=== PATIENT | female | born 1995 | race Caucasian/White ===

== ENCOUNTER 2016-09-02 23:25 | Inpatient (IN) ==
[2016-09-03 00:05] LABS: URINE SOURCE VOIDED
[2016-09-03 00:07] LABS: BILIRUBIN URINE NEGATIVE (NEGATIVE); BLOOD URINE 4+ (NEGATIVE); CLARITY SL. CLOUDY (CLEAR); COLOR YELLOW; GLUCOSE URINE NEGATIVE (NEGATIVE); LEUKOCYTES URINE 1+ (NEGATIVE); NITRITE URINE NEGATIVE (NEGATIVE); PROTEIN URINE NEGATIVE (NEGATIVE); UROBILINOGEN URINE NORMAL
[2016-09-03] MEDS ORDERED: ZOFRAN IV PRN (01:06)
[2016-09-03] MEDS ORDERED: STADOL IV PRN ×2 (01:06→04:22)
[2016-09-03] MEDS ORDERED: PEPCID PO PRN (01:06)
[2016-09-03] MEDS ORDERED: TYLENOL PO PRN (01:06)
[2016-09-03] MEDS ORDERED: PEPCID IV PRN (01:06)
[2016-09-03] MEDS ORDERED: KEFZOL 1 GM/D5W 1 GM/50 ML IVPB IV PRN (01:06)
[2016-09-03] MEDS ORDERED: SODIUM CHLORIDE 0.9% INJ SCH (01:15)
[2016-09-03 01:34] LABS: UR AMPHETAMINES QUAL NONE DETECTED (NONE DETECT); UR BARBITUATES QUAL NONE DETECTED (NONE DETECT); UR BENZODIAZEPIN QUAL NONE DETECTED (NONE DETECT); UR CANNABINOIDS QUAL NONE DETECTED (NONE DETECT); UR COCAINE QUAL NONE DETECTED (NONE DETECT); UR MDMA QUAL NONE DETECTED (NONE DETECT); UR METHADONE QUAL NONE DETECTED (NONE DETECT); UR METHAMPHETAMINE QUAL NONE DETECTED (NONE DETECT); UR OPIATES QUAL NONE DETECTED (NONE DETECT); UR OXYCODONE QUAL NONE DETECTED (NONE DETECT); UR PCP QUAL NONE DETECTED (NONE DETECT); UR TCA QUAL NONE DETECTED (NONE DETECT)
[2016-09-03] MEDS: LR 1,000 ML IV SCH ×2 (01:40→07:38)
[2016-09-03] MEDS ORDERED: AMPICILLIN 2 GM/NS 2 GM/100 ML IVPB IV ONE (02:00)
[2016-09-03 02:53] LABS: MANUAL DIFF NEEDED? NO
[2016-09-03 02:56] LABS: BASO% 0.3 % (0.0-0.8); EOS# 0.07 X1000 (0.0-0.7); EOS% 0.6 % (0.0-10.0); HEMATOCRIT 33.5 % (37.0-47.0); IMM GRAN# 0.13 X1000 (0.0-0.04); IMM GRAN% 1.2 % (0.0-0.5); LYMPH# 1.93 X1000 (1.2-3.4); LYMPH% 17.6 % (20.5-51.1); MCH 28.2 PG (27-31); MCHC 32.8 g/dL (33-37); MCV 85.9 FL (81-99); MONO# 0.93 X1000 (0.11-0.59); MONO% 8.5 % (1.7-9.3); MPV 11.9 FL (7.4-10.4); NEUT% 71.8 % (42.2-75.2); PLT 159 X1000 (130-400)
[2016-09-03] MEDS: AMPICILLIN 1 GM/NS 1 GM/50 ML IVPB IV SCH ×2 (05:45→09:16)
[2016-09-03] MEDS ORDERED: PITOCIN 30 UNITS/LR 30 UNITS/500 ML IV.SOLN IV SCH (07:00)
[2016-09-03] MEDS ORDERED: FENTANYL-BUPIV-NS 2 MCG-0.1% 200 ML EPIDURAL SCH (08:00)
[2016-09-03] MEDS ORDERED: XYLOCAINE-MPF 1% INJ ONE (09:09)
[2016-09-03] MEDS ORDERED: MINERAL OIL TOP ONE (09:54)
[2016-09-03] MEDS ORDERED: HYDROXYZINE PO PRN (11:34)
[2016-09-03] MEDS ORDERED: PERI MEDS (DERMOPLAST/NUPERCAINAL/TUCKS) MISC PRN (11:34)
[2016-09-03] MEDS ORDERED: PITOCIN 30 UNITS/LR 30 UNITS/500 ML IV.SOLN IV ONE (11:34)
[2016-09-03] MEDS ORDERED: HYDROXYZINE IM PRN (11:34)
[2016-09-03] MEDS ORDERED: BOOSTRIX VACCINE IM ONE (11:34)
[2016-09-03] MEDS ORDERED: XYLOCAINE-MPF 1% INJ PRN (11:34)
[2016-09-03] MEDS ORDERED: PITOCIN IM PRN (11:34)
[2016-09-03] MEDS ORDERED: AMBIEN PO PRN (11:34)
[2016-09-03] MEDS ORDERED: PITOCIN 20 UNITS/LR 20 UNITS/1,000 ML IV.SOLN IV SCH (11:34)
[2016-09-03] MEDS ORDERED: MINERAL OIL PO PRN (11:34)
[2016-09-03] MEDS ORDERED: M-M-R II VACCINE SUBQ ONE (11:34)
[2016-09-03] MEDS ORDERED: BENADRYL IV PRN (11:34)
[2016-09-03] MEDS ORDERED: BENADRYL PO PRN (11:34)
[2016-09-03] MEDS ORDERED: CYTOTEC PO PRN (11:34)
--- NOTE | 2016-09-03 11:53 | OPERATIVE NOTE ---
PROCEDURE DATE: 09/03/2016 PREDELIVERY DIAGNOSES: 1. Intrauterine at 39 and 3. 2. Rh-negative blood type. 3. Group B streptococcus carrier positive. 4. Spontaneous labor. POST-DELIVERY DIAGNOSES: 1. Intrauterine at 39 and 3. 2. Rh-negative blood type. 3. Group B streptococcus carrier positive. 4. Spontaneous labor. 5. Meconium-stained amniotic fluid. PROCEDURE: Vaginal delivery. PHYSICIAN: Jabari Clark MD. ANESTHESIA: Epidural with Dr. Lynne. FINDINGS: Viable female , 7 pounds 2 ounces. Do not have Apgars. There were no lacerations or tears. The cord did break from the placenta. Took approximately 5-7 minutes to deliver an intact placenta. It was inspected. No issues. Three-vessel cord. ESTIMATED BLOOD LOSS: 100 mL. COUNTS: Correct. INDICATIONS: Ms. Adams is a 20-year-old, 2 para 1, at 39 and 3, who presented last night in active labor. DESCRIPTION OF PROCEDURE: Was started on antibiotics for GBS prophylaxis. Was begun on Pitocin this morning. Was artificially ruptured. Had thin meconium. Progress complete cervical dilatation. Began pushing. Approximately 1 hour later crowned, at which point, the bed was broken down. She was prepped and draped. With continued pushing, she delivered a viable female , occiput anterior, over an intact perineum. Once head delivered, shoulders and rest of the body delivered without difficulty. The infant was placed on mother's abdomen. Cord doubly clamped and cut and care of taken over by nursery personnel. Cord blood was obtained and a 3-vessel cord was noted. Gentle traction on the cord resulted in an avulsion of the cord from the placenta, so patient was allowed to continue to contract and she was given a fundal massage. After approximately 5 minutes, the placenta delivered spontaneously. It was inspected found to be intact. Inspection of the perineum and vagina did not reveal any lacerations, tears or material blood clots, so estimated blood loss 100 mL. All counts correct. Expect routine . cc: MD Jabari Blanco MD
[2016-09-03] MEDS: MOTRIN PO PRN ×2 (15:41→23:58)
[2016-09-03] MEDS: NORCO-5 PO PRN ×2 (15:41→23:58)
[2016-09-03] MEDS: PERICOLACE PO SCH (20:56)
[2016-09-03] MEDS: NORCO-10 PO PRN (20:56)
[2016-09-04 05:51] LABS: MANUAL DIFF NEEDED? NO
[2016-09-04 06:00] LABS: BASO% 0.2 % (0.0-0.8); EOS# 0.08 X1000 (0.0-0.7); EOS% 0.8 % (0.0-10.0); HEMATOCRIT 31.2 % (37.0-47.0); HEMOGLOBIN 9.9 g/dL (12.0-16.0); IMM GRAN# 0.13 X1000 (0.0-0.04); IMM GRAN% 1.3 % (0.0-0.5); LYMPH# 2.41 X1000 (1.2-3.4); LYMPH% 24.1 % (20.5-51.1); MCHC 31.7 g/dL (33-37); MCV 88.1 FL (81-99); MONO# 0.73 X1000 (0.11-0.59); MONO% 7.3 % (1.7-9.3); NEUT% 66.3 % (42.2-75.2); PLT 144 X1000 (130-400); RBC 3.54 XMIL (4.2-5.4)
[2016-09-04] MEDS: PRECARE PO SCH (08:51)
[2016-09-04] MEDS: NORCO-5 PO PRN ×3 (09:02→21:31)
[2016-09-04] MEDS: MOTRIN PO PRN ×2 (09:03→16:25)
[2016-09-04] MEDS: PERICOLACE PO SCH (21:28)
[2016-09-05] MEDS: NORCO-5 PO PRN ×2 (00:52→09:17)
[2016-09-05] MEDS: MOTRIN PO PRN ×2 (00:52→09:17)
[2016-09-05] MEDS: NORCO-10 PO PRN (04:52)
[2016-09-05 07:21] VITALS: BP 145/94
[2016-09-05] MEDS: PRECARE PO SCH (09:15)
== END 2016-09-05 10:25 | disposition home or self-care (01) ==
LOC: P.OPLD 23:25 → P.LD 23:28 → P.WC 09-03 15:04
PROVIDERS: ADMIT Obstetrics & Gynecology; ATTEND Obstetrics & Gynecology

== ENCOUNTER 2018-06-09 08:04 | Inpatient (IN) ==
[2018-06-09] MEDS ORDERED: NS 1,000 ML IV ONE ×2 (08:46→11:36)
[2018-06-09 09:22] LABS: BASO# 0.01 X1000 (0.0-0.2); BASO% 0.1 % (0.0-0.8); EOS# 0.01 X1000 (0.0-0.7); EOS% 0.1 % (0.0-10.0); HEMATOCRIT 34.9 % (37.0-47.0); HEMOGLOBIN 11.7 g/dL (12.0-16.0); IMM GRAN# 0.07 X1000 (0.0-0.04); IMM GRAN% 0.4 % (0.0-0.5); LYMPH# 0.93 X1000 (1.2-3.4); LYMPH% 5.8 % (20.5-51.1); MCH 29.3 PG (27-31); MCHC 33.5 g/dL (33-37); MCV 87.3 FL (81-99); MONO# 1.13 X1000 (0.11-0.59); MPV 9.6 FL (7.4-10.4); NEUT# 14.02 X1000 (1.4-6.5); NEUT% 86.6 % (42.2-75.2); PLT 191 X1000 (130-400); RDW 12.9 % (11.5-14.5); WBC 16.17 X1000 (4.8-10.8)
[2018-06-09 09:25] LABS: BILIRUBIN URINE NEGATIVE (NEGATIVE); BLOOD URINE 4+ (NEGATIVE); CLARITY VERY CLOUDY (CLEAR); COLOR YELLOW; GLUCOSE URINE NEGATIVE (NEGATIVE); KETONE URINE NEGATIVE (NEGATIVE); LEUKOCYTES URINE 2+ (NEGATIVE); NITRITE URINE NEGATIVE (NEGATIVE); PROTEIN URINE 1+(30 mg/dL) mg/dL (NEGATIVE); SP GRAVITY URINE 1.005; UROBILINOGEN URINE NORMAL
[2018-06-09 09:27] LABS: URINE BACTERIA 2+ /HFP; URINE EPITHELIAL CELLS >10 /HPF (<10); URINE RBC TNTC /HPF (<10); URINE SOURCE CLEAN CATCH
[2018-06-09 10:04] LABS: INFLUENZA A NEGATIVE (NEGATIVE); INFLUENZA B NEGATIVE (NEGATIVE)
[2018-06-09] MEDS ORDERED: TYLENOL PO ONE ×2 (10:16→11:26)
[2018-06-09] MEDS ORDERED: ROCEPHIN IV ONE (10:16)
[2018-06-09 10:39] LABS: AGAP 14; ALKALINE PHOSPHATASE 81 U/L (32-104); BUN 6 mg/dL (8-22); CALCIUM 8.9 mg/dL (8.8-10.2); CHLORIDE 99 mmol/L (98-107); COSMO 269; CREATININE 0.4 mg/dL (0.5-0.9); ESTIMATED GFR > 60; GLUCOSE 82 mg/dL (70-104); GOT 14 U/L (10-30); GPT 6 U/L (10-36); LIPASE 20 U/L (13-60); POTASSIUM 3.9 mmol/L (3.5-5.1); SODIUM 136 mmol/L (136-145); TCO2 23 mmol/L (25-35); TOTAL PROTEIN 7.4 g/dL (6.3-8.3)
[2018-06-09] MEDS ORDERED: ROCEPHIN 1 GM in NS 50 ML IV ONE (11:00)
--- NOTE | 2018-06-09 11:14 | PROVIDER DOCUMENTATION ---
This chart was entered by Sherry Ellsworth Scribe, acting as scribe for Rocio Delcid MD. HPI-Abdominal Pain/GI Problem - General Chief Complaint: Abdominal Pain Stated Complaint: 15 WKS PREG,ABD PAIN Time Seen by Provider: 06/09/18 08:35 Source: patient Allergies/Adverse Reactions: Patient Allergies Allergy/AdvReac Type Severity Reaction Status Date / Time No Known Allergies Allergy Verified 03/26/12 09:19 Home Medications: Home Medication List Medication Instructions Recorded Confirmed Last Taken Type Vit/Fe Fumarate/FA 1 tab PO DAILY 09/02/16 09/02/16 09/02/16 09:00 History [ 1-1 Tablet] Hydrocodone/APAP 5 mg/325 mg 1 each PO Q3-4H PRN PRN #30 tablet 09/05/16 Unknown Rx [[place]-5] Nitrofurantoin Monohyd/M-Cryst 100 mg PO BID #20 cap 06/09/18 Unknown Rx [Macrobid 100 mg Capsule] - History of Present Illness-ABD Nature of Presenting Problems: 22 yof presents to the ed with c/o diffuse abdominal pain onset yesterday but worsening today. pt is [address] due to lack of insurance. pt denies n/v/d . patient had ultrasound recently comfirmed intrauterine according to the patient Abdominal Pain Onset Location: reports: generalized abdomen Quality of Pain: reports: aching Severity in ED: reports: mild Onset/Duration: reports: 24 hours ago Timing: reports: still present, intermittent, getting worse Activities at Onset: reports: light activity Review of Systems - Adult - REVIEW OF SYSTEMS - ADULT Constitutional: reports: see HPI, fever (99.7) Eyes: reports: no symptoms reported Ears, Nose, Mouth & Throat: reports: no symptoms reported Cardiovascular: denies: chest pain, palpitations Respiratory: denies: cough, shortness of breath, wheezing Gastrointestinal: reports: see HPI, abdominal pain. denies: diarrhea, nausea, vomiting Genitourinary: reports: no symptoms reported Musculoskeletal: denies: back pain, neck pain Integumentary: reports: no symptoms reported Neurological: reports: no symptoms reported Psychiatric: reports: no symptoms reported Endocrine: reports: no symptoms reported Hematologic/Lymphatic: reports: no symptoms reported Allergic/Immunologic: reports: no symptoms reported All Other Systems: Reviewed and Negative Past History - Adult - PAST MEDICAL HISTORY-ADULT Review of Records: reports: Old Records Reviewed, Nursing Assessment Review, Medications Reviewed, Social history reviewed & non-contributory. Major Childhood Illnesses: reports: denies history Cardiovascular: reports: denies history Respiratory: reports: denies history Gastrointestinal: reports: denies history Obstetrical/Gynecological: reports: denies history Genitourinary: reports: denies history Musculoskeletal: reports: denies history Hand Dominance: Right Handed Neurological: reports: denies history Psychiatric: reports: denies history Endocrine/Immune: reports: denies history Other Conditions: reports: denies history - PRIOR SURGERIES/PROCEDURES Surgical/Procedure History: reports: reviewed, not pertinent - IMMUNIZATION STATUS Childhood Immunizations: See Nurse Assessment Flu Vaccine: See Nurse Assessment - FAMILY HISTORY Family History: reviewed, not pertinent - SOCIAL HISTORY Smoking: cigarettes, less than 1 pack/day Provider spent 3-5 mins advising pt. on dangers of tobacco.: Discussed manners to quit use, and f/u contacts for add'l counseling. Substance Use: denies Alcohol Use Frequency: never Living Situation: family Physical Exam-General - PHYSICAL EXAM-ADULT Initial Vital Signs Reviewed: Yes - CONSTITUTIONAL General Appearance: appears well, alert, no apparent distress, other (14 weeks ) - EYES Eyes: PERRL/EOMI, pink conjunctivae - HEAD, EARS, NOSE, MOUTH & THROAT HENMT: moist mucous membranes, normal ENT inspection - NECK Neck: non-tender, full range of motion, supple - RESPIRATORY Respiratory: chest non-tender, lungs clear, normal breath sounds - CARDIOVASCULAR Cardiovascular: normal peripheral pulses, regular rate, rhythm - GASTROINTESTINAL (ABDOMEN) Abdominal Exam: normal bowel sounds, soft, tenderness (diffuse), other (c/ mild pain but on exam had lessened) - GENITOURINARY Female Genitalia/Pelvic Exam: deferred - LYMPHATIC Lymphatic: no adenopathy - MUSCULOSKELETAL Back Exam: normal inspection, no CVA tenderness, no vertebral tenderness Extremity: normal range of motion, non-tender, normal gait, normal inspection - SKIN Integumentary: normal color, normal turgor, warm/dry - NEUROLOGIC Neurologic: grossly normal, no motor/sensory deficits - PSYCHIATRIC Psych/Mental Status: normal mood/affect, normal thought content, normal thought process, oriented x 3 Progress - PLAN OF CARE/RESULTS Progress/Plan/Lab Results: Vital Signs - 8 hr 06/09/18 08:08 Temperature 99.7 F H Pulse Rate 94 H Respiratory Rate 16 Blood Pressure 117/074 O2 Sat by Pulse Oximetry 100 Orders Category Date Time Status Heart Tones NOW Care 06/09/18 08:46 Active Saline Loc DIRECTED Care 06/09/18 08:45 Active NPO Diet 06/09/18 08:45 Active AMYLASE [CHEM] Stat Lab 06/09/18 08:45 Ordered CBC WITH ELECTRONIC DIFF [HEME] Stat Lab 06/09/18 08:45 Ordered COMPREHENSIVE METABOLIC PANEL [CHEM] Stat Lab 06/09/18 08:45 Uncollected LIPASE [CHEM] Stat Lab 06/09/18 08:[address] W/POSS RFLX CULT [URINALYSIS] Stat Lab 06/09/18 08:45 Uncollected 0.9% Sodium Chloride Inj [Ns] 1,000 ml Med 06/09/18 08:46 Active IV 999 mls/hr /A0 Result Diagrams: 06/09/18 09:05 06/09/18 09:05 - REASSESSMENT Reassessment #1 Time Reassessed: 09:02 (heart tones 177) Status: improving (recommended to follow up with OB doctor, return to ER if symptoms worsen, patient agreed) Departure - Departure Date of Disposition Decision: 06/09/18 Time of Disposition Decision: 11:10 DIAGNOSIS: Abdominal pain during , Hematuria Disposition: HOME 01 Certified Medical Emergency: Emergent Condition: Good Prescriptions: Nitrofurantoin Monohyd/M-Cryst [Macrobid 100 mg Capsule] 100 mg PO BID #20 cap Referrals and Follow-Ups: None,PCP [Primary Care Provider] - - Critical Care Note This patient required my direct & personal management of CC.: No Attestation - Physician/ BARBI Attestation Patient care was provided by Advanced Practice Provider:: No The physician spent face to face time with patient:: Yes Advanced Practice Provider documentation review:: Supervising physician onsite and consulted in the evaluation and care of this patient. The physician did have a face to face encounter with the patient. This chart was documented by the indicated scribe, (Sherry Ellsworth Scribe) and accurately reflects the services I performed and decisions made by me, Ed Delcid i, MD, as attested by the provider's signature.
[2018-06-09] MEDS ORDERED: LR 1,000 ML IV ONE (12:00)
[2018-06-09 16:31] LABS: INR MIXING STUDY 0 MIN 0.96; PROTIME MIXING STUDY O MIN 13.6 Seconds (9.2-11.7); PTT MIXING STUDY O MIN 28.4 Seconds (22.0-36.0)
[2018-06-09 17:10] LABS: PROTIME MIXING STUDY 3O MIN 13.1 Seconds (9.2-11.7); PTT MIXING STUDY 3O MIN 29.6 Seconds (22.0-36.0)
[2018-06-09 17:22] LABS: INR MIXING STUDY 30 MIN 0.92
[2018-06-09 17:25] LABS: INR MIXING STUDY 60 MIN 0.93; PROTIME MIXING STUDY 6O MIN 13.3 Seconds (9.2-11.7); PTT MIXING STUDY 6O MIN 29.1 Seconds (22.0-36.0)
[2018-06-09 17:59] LABS: INR MIXING STUDY 90 MIN 0.92
[2018-06-09 18:27] LABS: INR MIXING STUDY 120 MIN 0.95; PROTIME MIXING STUDY 12O MIN 13.5 Seconds (9.2-11.7); PTT MIXING STUDY 12O MIN 31.3 Seconds (22.0-36.0)
[2018-06-09] MEDS: PERCOCET-10 PO PRN (18:28)
[2018-06-09] MEDS: ZOFRAN IV PRN (18:28)
[2018-06-09] MEDS: PHENERGAN PO SCH (20:08)
--- NOTE | 2018-06-09 21:30 | HISTORY AND PHYSICAL ---
HISTORY OF PRESENT ILLNESS: The patient is a 22-year-old white female, G3, P2 at approximately 15 weeks gestation based [facility], who presents with complaint of abdominal pain and back pain that started yesterday and progressively worsened today. The patient denies nausea, vomiting, diarrhea, vaginal bleeding or cramping. PAST MEDICAL HISTORY: History of recurrent urinary tract infections. PAST SURGICAL HISTORY: Noncontributory. OBSTETRICAL HISTORY: Two term spontaneous vaginal deliveries. FAMILY HISTORY: Noncontributory. SOCIAL HISTORY: Positive tobacco use less than or equal to 1 pack per day. Negative alcohol use. Negative drug use. MEDICATIONS: vitamins. ALLERGIES: No known drug allergies. REVIEW OF SYSTEMS: See HPI. PHYSICAL EXAMINATION: VITAL SIGNS: Temperature 101.9 degrees, heart rate 135, blood pressure 122/69, respiration rate 18, oxygen O2 sats 100% on room air. GENERAL: No acute distress, however, appears febrile. EYES: [place] conjunctivae. CARDIOVASCULAR: Tachy plus S1, plus S2. RESPIRATORY: Clear to auscultation bilaterally. Normal breath sounds. ABDOMEN: Soft, nontender to palpation. GENITOURINARY: Negative vaginal bleeding. EXTREMITIES: Negative calf tenderness. MUSCULOSKELETAL: Positive left CVA tenderness. Negative for right CVA tenderness. LABORATORY DATA: White blood cell count 16.17, hemoglobin 11.7, platelets 191,000, creatinine 0.4, BUN 6. Urinalysis: 2+ bacteria, 2+ white blood cells. Influenza A negative. Influenza B negative. ASSESSMENT: The patient is a 22-year-old G3, P2 at approximately 15 weeks gestation with pyelonephritis. PLAN: 1. Admit for IV antibiotic therapy. 2. Ceftriaxone 1 g IV daily 24 hours. 3. IV fluids at 125 mL/h. 4. Pain management with Percocet p.r.n. 5. Zofran and Phenergan p.r.n. nausea. 6. heart rate every shift. 7. OB ultrasound to confirm dating. 8. Consider kidney ultrasound if no clinical improvement with antibiotic therapy. 9. Urine cultures pending. We will follow results.
[2018-06-09] MEDS: LR 1,000 ML IV SCH (23:19)
[2018-06-10] MEDS: PERCOCET-10 PO PRN ×4 (01:56→19:53)
[2018-06-10] MEDS: ZOFRAN IV PRN (01:57)
[2018-06-10] MEDS: LR 1,000 ML IV SCH ×2 (01:58→09:54)
[2018-06-10 07:11] LABS: BASO# 0.01 X1000 (0.0-0.2); BASO% 0.1 % (0.0-0.8); EOS# 0.05 X1000 (0.0-0.7); EOS% 0.4 % (0.0-10.0); HEMATOCRIT 30.3 % (37.0-47.0); HEMOGLOBIN 9.8 g/dL (12.0-16.0); IMM GRAN# 0.04 X1000 (0.0-0.04); IMM GRAN% 0.3 % (0.0-0.5); LYMPH# 1.51 X1000 (1.2-3.4); LYMPH% 10.7 % (20.5-51.1); MCH 28.7 PG (27-31); MCHC 32.3 g/dL (33-37); MCV 88.6 FL (81-99); MONO# 1.29 X1000 (0.11-0.59); MONO% 9.1 % (1.7-9.3); MPV 10.7 FL (7.4-10.4); NEUT# 11.25 X1000 (1.4-6.5); NEUT% 79.4 % (42.2-75.2); PLT 140 X1000 (130-400); RBC 3.42 XMIL (4.2-5.4); RDW 13.1 % (11.5-14.5); WBC 14.15 X1000 (4.8-10.8)
--- NOTE | 2018-06-10 08:01 | OB/GYN PROGRESS NOTE ---
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 Progress Note: Vital Signs - 24 hr 06/09/18 08:08 06/09/18 11:28 06/09/18 13:02 Temperature 99.7 F H 101.7 F H 97.9 F Pulse Rate 94 H 126 H 104 H Respiratory Rate 16 16 18 Blood Pressure 117/074 103/52 114/60 O2 Sat by Pulse Oximetry 100 98 100 06/09/18 14:58 06/09/18 16:00 06/09/18 20:25 Temperature 101.9 F H 98.9 F Pulse Rate 98 H 135 H 98 H Respiratory Rate 18 20 Blood Pressure 122/69 106/51 O2 Sat by Pulse Oximetry 100 99 06/10/18 00:28 06/10/18 04:34 06/10/18 04:37 Temperature 98.2 F 98.3 F Pulse Rate 79 89 Respiratory Rate 19 18 Blood Pressure 102/50 86/43 100/50 O2 Sat by Pulse Oximetry 99 100 Laboratory Results - last 24 hr 06/09/18 06/09/18 06/09/18 09:05 09:05 09:05 WBC 16.17 H RBC 4.00 L Hgb 11.7 L Hct 34.9 L MCV 87.3 MCH 29.3 MCHC 33.5 RDW Std Deviation 12.9 Plt Count 191 MPV 9.6 Immature Gran % (Auto) 0.4 Neut % (Auto) 86.6 H Lymph % (Auto) 5.8 L Braxton % (Auto) 7.0 Eos % (Auto) 0.1 Baso % (Auto) 0.1 Immature Gran # (Auto) 0.07 H Neut # (Auto) 14.02 H Lymph # (Auto) 0.93 L Braxton # (Auto) 1.13 H Eos # (Auto) 0.01 Baso # (Auto) 0.01 PT/PTT Mixing Studies Sodium 136 Potassium 3.9 Chloride 99 Carbon Dioxide 23 L Anion Gap 14 BUN 6 L Creatinine 0.4 L Estimated GFR/1.73 m2 > 60 BUN/Creatinine Ratio 15 Glucose 82 Calculated Osmolality 269 Calcium 8.9 Total Bilirubin 0.20 AST 14 ALT 6 L Alkaline Phosphatase 81 Creatine Kinase Troponin T Total Protein 7.4 Albumin 4.0 Globulin 3.0 Albumin/Globulin Ratio 1.0 Amylase 47 Lipase 20 Plasma Lactate Urine Source Urine Color Urine Clarity Urine pH Ur Specific [place] Urine Protein Urine Ketones Urine Blood Urine Nitrite Urine Bilirubin Urine Urobilinogen Urine Microscopic RBC Urine WBC Urine Microscopic WBC Ur Epithelial Cells Urine Bacteria Urine Glucose Influenza A (Rapid) Influenza B (Rapid) 06/09/18 06/09/18 06/09/18 09:05 09:30 14:52 WBC RBC Hgb Hct MCV MCH MCHC RDW Std Deviation Plt Count MPV Immature Gran % (Auto) Neut % (Auto) Lymph % (Auto) Braxton % (Auto) Eos % (Auto) Baso % (Auto) Immature Gran # (Auto) Neut # (Auto) Lymph # (Auto) Braxton # (Auto) Eos # (Auto) Baso # (Auto) PT/PTT Mixing Studies Sodium Potassium Chloride Carbon Dioxide Anion Gap BUN Creatinine Estimated GFR/1.73 m2 BUN/Creatinine Ratio Glucose Calculated Osmolality Calcium Total Bilirubin AST ALT Alkaline Phosphatase Creatine Kinase 46 Troponin T Total Protein Albumin Globulin Albumin/Globulin Ratio Amylase Lipase Plasma Lactate Urine Source CLEAN CATCH Urine Color YELLOW Urine Clarity VERY CLOUDY A Urine pH 7.0 Ur Specific [place] 1.005 Urine Protein 1+(30 mg/dL) A Urine Ketones NEGATIVE Urine Blood 4+ Urine Nitrite NEGATIVE Urine Bilirubin NEGATIVE Urine Urobilinogen NORMAL Urine Microscopic RBC TNTC A Urine WBC 2+ A Urine Microscopic WBC 10-20 A Ur Epithelial Cells >10 A Urine Bacteria 2+ Urine Glucose NEGATIVE Influenza A (Rapid) NEGATIVE Influenza B (Rapid) NEGATIVE 06/09/18 06/09/18 06/09/18 14:52 14:52 14:52 WBC RBC Hgb Hct MCV MCH MCHC RDW Std Deviation Plt Count MPV Immature Gran % (Auto) Neut % (Auto) Lymph % (Auto) Braxton % (Auto) Eos % (Auto) Baso % (Auto) Immature Gran # (Auto) Neut # (Auto) Lymph # (Auto) Braxton # (Auto) Eos # (Auto) Baso # (Auto) PT/PTT Mixing Studies Sodium Potassium Chloride Carbon Dioxide Anion Gap BUN Creatinine Estimated GFR/1.73 m2 BUN/Creatinine Ratio Glucose Calculated Osmolality Calcium Total Bilirubin AST ALT Alkaline Phosphatase Creatine Kinase Troponin T < 0.010 Total Protein Albumin Globulin Albumin/Globulin Ratio Amylase Lipase Plasma Lactate 0.6 Urine Source Urine Color Urine Clarity Urine pH Ur Specific [place] Urine Protein Urine Ketones Urine Blood Urine Nitrite Urine Bilirubin Urine Urobilinogen Urine Microscopic RBC Urine WBC Urine Microscopic WBC Ur Epithelial Cells Urine Bacteria Urine Glucose Influenza A (Rapid) Influenza B (Rapid) 06/10/18 05:32 WBC 14.15 H RBC 3.42 L Hgb 9.8 L D Hct 30.3 L MCV 88.6 MCH 28.7 MCHC 32.3 L RDW Std Deviation 13.1 Plt Count 140 MPV 10.7 H Immature Gran % (Auto) 0.3 Neut % (Auto) 79.4 H Lymph % (Auto) 10.7 L Braxton % (Auto) 9.1 Eos % (Auto) 0.4 Baso % (Auto) 0.1 Immature Gran # (Auto) 0.04 Neut # (Auto) 11.25 H Lymph # (Auto) 1.51 Braxton # (Auto) 1.29 H Eos # (Auto) 0.05 Baso # (Auto) 0.01 PT/PTT Mixing Studies Sodium Potassium Chloride Carbon Dioxide Anion Gap BUN Creatinine Estimated GFR/1.73 m2 BUN/Creatinine Ratio Glucose Calculated Osmolality Calcium Total Bilirubin AST ALT Alkaline Phosphatase Creatine Kinase Troponin T Total Protein Albumin Globulin Albumin/Globulin Ratio Amylase Lipase Plasma Lactate Urine Source Urine Color Urine Clarity Urine pH Ur Specific [place] Urine Protein Urine Ketones Urine Blood Urine Nitrite Urine Bilirubin Urine Urobilinogen Urine Microscopic RBC Urine WBC Urine Microscopic WBC Ur Epithelial Cells Urine Bacteria Urine Glucose Influenza A (Rapid) Influenza B (Rapid) HPI: Pt seen and examined. Reports pain well controlled with PO pain meds. Abdominal pain and back pain improved. Denies fevers/chills/N/V overnight. requesting regular diet. VS: please see above, last temp 101.9 at 16:00 on 06/09/18. GENERAL: No acute distress CARDIOVASCULAR: RRR, + S1, + S2. RESPIRATORY: Clear to auscultation bilaterally. Normal breath sounds. ABDOMEN: Soft, nontender to palpation. GENITOURINARY: Negative vaginal bleeding. EXTREMITIES: Negative calf tenderness. MUSCULOSKELETAL: Positive left CVA tenderness. Negative for right CVA tenderness. LABS: WBC: 16.17-->14.15 ASSESSMENT: The patient is a 22-year-old G3, P2 at approximately 15 weeks gestation with pyelonephritis. PLAN: -Con't Ceftriaxone 1 g IV daily 24 hours. -IV fluids at 125 mL/h. -Advance diet to soft -Pain management with Percocet p.r.n. -Zofran and Phenergan p.r.n. nausea. - heart rate every shift. -OB ultrasound to confirm dating. -Consider kidney ultrasound if no clinical improvement with antibiotic therapy. -Urine cultures pending. We will follow results.
[2018-06-10] MEDS: PHENERGAN PO SCH ×3 (08:09→20:00)
[2018-06-10] MEDS: ROCEPHIN 1 GM in NS 50 ML IV SCH ×2 (08:09→09:54)
[2018-06-10] MEDS: NS 1,000 ML IV SCH ×2 (08:09→09:54)
[2018-06-10] MEDS: PRECARE PO SCH (08:09)
[2018-06-10] MEDS: COLACE PO SCH (09:33)
--- NOTE | 2018-06-10 10:56 | Diag Imaging Result Doc PS360 ---
EXAM: US OBS COMPLETE > 14 WKS INDICATION: OB dating/ gestational age TECHNIQUE: COMPARISON: None. FINDINGS: There is a single viable intrauterine gestation. The presentation is variable. The placenta is located anteriorly. The cervix is closed measuring up to 3.7 cm. There is no evidence of placenta previa. No gross or placental anomalies are appreciated. Specifically, a four-chamber heart, umbilical cord, bladder, kidneys, stomach, and spine are identified and are unremarkable. FHR-156 bpm KYRA-15.34 cm EFW-163 g +/- 22 g GA by ultrasound-16 weeks 1 day +/- 8 days IMPRESSION: Single viable intrauterine gestation with no gross anomalies appreciated. Electronically signed by Jabari Valdovinos 06/10/2018 10:54 AM
[2018-06-11] MEDS: PERCOCET-10 PO PRN ×2 (02:50→13:18)
[2018-06-11] MEDS: NS 1,000 ML IV SCH ×3 (02:50→10:46)
[2018-06-11 06:07] LABS: BASO# 0.01 X1000 (0.0-0.2); BASO% 0.1 % (0.0-0.8); EOS# 0.09 X1000 (0.0-0.7); EOS% 0.9 % (0.0-10.0); HEMOGLOBIN 8.7 g/dL (12.0-16.0); IMM GRAN# 0.07 X1000 (0.0-0.04); IMM GRAN% 0.7 % (0.0-0.5); LYMPH% 20.5 % (20.5-51.1); MCH 28.8 PG (27-31); MCHC 32.2 g/dL (33-37); MCV 89.4 FL (81-99); MONO# 0.97 X1000 (0.11-0.59); MPV 10.4 FL (7.4-10.4); NEUT% 67.8 % (42.2-75.2); PLT 132 X1000 (130-400); RBC 3.02 XMIL (4.2-5.4); RDW 13.2 % (11.5-14.5); WBC 9.74 X1000 (4.8-10.8)
[2018-06-11] MEDS: PRECARE PO SCH (09:03)
[2018-06-11] MEDS: ROCEPHIN 1 GM in NS 50 ML IV SCH (09:03)
[2018-06-11] MEDS: PHENERGAN PO SCH (09:03)
[2018-06-11] MEDS: COLACE PO SCH (09:03)
[2018-06-11 15:40] VITALS: BP 98/44
--- NOTE | 2018-06-11 22:50 | DISCHARGE SUMMARY ---
ADMISSION DATE: 06/09/2018 DISCHARGE DATE: 06/11/2018 ADMISSION DIAGNOSIS: A 23-year-old, G3, P2, approximately 15 weeks with pyelonephritis. FINAL DIAGNOSIS: A 23-year-old, G3, P2, approximately 15 weeks with pyelonephritis. PROCEDURES: IV fluids and IV antibiotics as well as pain medicine. BRIEF HISTORY: The patient is a 22-year-old, white female, at 15 weeks gestation based on ultrasound completed at [facility], who presents with complaints of abdominal pain and back pain on the left side that began yesterday and is getting worse on the day of admission. The patient denies nausea, vomiting, diarrhea, vaginal bleeding or cramping. PAST MEDICAL HISTORY: Significant for recurrent urinary tract infections. PAST SURGICAL HISTORY: Noncontributory. PAST OB HISTORY: Two term spontaneous vaginal deliveries. FAMILY HISTORY: Noncontributory. SOCIAL HISTORY: Tobacco use, less than or equal to 1 pack per day. Alcohol use none. MEDICATIONS: vitamins. ALLERGIES: No known drug allergies. PHYSICAL EXAMINATION: Vital Signs: Temp 101.9 degrees, heart rate 135, blood pressure 122/69, respirations 18. General: No acute distress, however, appears febrile. Cardiovascular: Tachy, plus S1, plus S2. Respiratory: Clear to auscultation bilaterally. Normal breath sounds. Abdomen: Soft, nontender to palpation. Left CVA tenderness was noted. Extremities: Negative calf tenderness. Genitourinary: No vaginal bleeding. LAB DATA: CBC showed a white count elevated to 16.17, hemoglobin was normal at 11.7, platelet count was 191,000. Creatinine was 0.4. On a urinalysis, 2+ bacteria. Influenza swabs for A and B were negative. ASSESSMENT AND PLAN: A 22-year-old white female, at 15 weeks gestation with left pyelonephritis. The patient will be admitted for IV antibiotic therapy and IV fluids, pain management, nausea management, and OB ultrasound to confirm dating, and urine for culture. HOSPITAL COURSE: The patient slowly improved and then on hospital day #3 she had gone 48 hours without a fever and had improvement in her left CVA tenderness. Urine culture showed E. coli that was sensitive to ampicillin. The patient was tolerating p.o. also. At this point in time, I felt the patient could be discharged home. DISCHARGE INSTRUCTIONS: Patient is to follow up in 2 weeks after getting set up for care, and also she is to continue taking her vitamins. PRESCRIPTIONS: Patient was given a prescription for ampicillin 500 mg 1 p.o. q.i.d. for 1 week, and also for Phenergan 25 mg tablets, dispensed 20 one p.o. q.6 hours p.r.n. nausea with 2 refills. cc: Ahmet Bonner III, MD
== END 2018-06-11 18:42 | disposition home or self-care (01) | DRG 833 ==
LOC: P.MEDSURG 08:04 → P.ED 08:04 → OBSVTOIN 12:18
PROVIDERS: ADMIT Obstetrics & Gynecology; ATTEND Obstetrics & Gynecology
CPT/HCPCS: 76805; 80053; 81001; 82150; 82550; 83605; 83690; 84484; 85025; 85611; 85732; 87077; 87088; 87186; 87275; 87276; 87804; 96361; 96365; 99285; A9270; J0696; J2405; J7030; J7120

== ENCOUNTER 2018-11-16 13:24 | Inpatient (IN) ==
[2018-11-16 14:05] LABS: BASO# 0.01 X1000 (0.0-0.2); BASO% 0.1 % (0.0-0.8); EOS# 0.09 X1000 (0.0-0.7); EOS% 1.2 % (0.0-10.0); HEMATOCRIT 36.9 % (37.0-47.0); HEMOGLOBIN 11.3 g/dL (12.0-16.0); IMM GRAN# 0.03 X1000 (0.0-0.04); IMM GRAN% 0.4 % (0.0-0.5); LYMPH# 1.25 X1000 (1.2-3.4); LYMPH% 16.9 % (20.5-51.1); MCH 26.3 PG (27-31); MCHC 30.6 g/dL (33-37); MONO# 0.58 X1000 (0.11-0.59); MONO% 7.8 % (1.7-9.3); NEUT# 5.43 X1000 (1.4-6.5); NEUT% 73.6 % (42.2-75.2); PLT 260 X1000 (130-400); RBC 4.29 XMIL (4.2-5.4); RDW 15.3 % (11.5-14.5); WBC 7.39 X1000 (4.8-10.8)
--- NOTE | 2018-11-16 14:15 | Diag Imaging Result Doc PS360 ---
EXAM: CT HEAD W/O CONTRAST 11/16/2018 HISTORY: SEIZURE, HEADACHE, POST TECHNIQUE: This exam was performed using automated exposure control, adjustment of mA or kV according to patient size, and/or use of iterative reconstruction technique. COMMENT: There is no evidence of mass effect, bleed, or abnormal extra-axial fluid collection. There is no evidence of suprasellar mass. The visualized paranasal sinuses are clear. The calvarium is intact. IMPRESSION: No evidence of acute intracranial disease. Electronically signed by Kain Rodarte 11/16/2018 2:12 PM
[2018-11-16 14:22] LABS: AGAP 13; ALBUMIN 3.5 g/dL (3.5-5.0); ALKALINE PHOSPHATASE 185 U/L (32-104); BUN 7 mg/dL (8-22); CALCIUM 8.7 mg/dL (8.8-10.2); CHLORIDE 105 mmol/L (98-107); CK PROFILE 173 U/L (24-173); COSMO 285; CREATININE 0.6 mg/dL (0.5-0.9); ESTIMATED GFR > 60; GLUCOSE 109 mg/dL (70-104); GOT 23 U/L (10-30); GPT 12 U/L (10-36); POTASSIUM 3.9 mmol/L (3.5-5.1); SODIUM 144 mmol/L (136-145); TCO2 26 mmol/L (25-35); TOTAL PROTEIN 6.2 g/dL (6.3-8.3)
--- NOTE | 2018-11-16 14:35 | Diag Imaging Result Doc PS360 ---
EXAM: CHEST-1 VIEW HISTORY: CP TECHNIQUE: Chest single view COMPARISON: None. FINDINGS: The lungs are well expanded. The heart is not enlarged. The vessels are not distended. There are no infiltrates. No effusion identified. IMPRESSION: Negative exam. Electronically signed by Keith Negrete 11/16/2018 2:33 PM
--- NOTE | 2018-11-16 15:07 | EKG Report ---
Test Performed on : 11/16/2018 2:30:36 PM Test Reason : CP Blood Pressure : / mmHG Vent. Rate : 065 BPM Atrial Rate : 065 BPM P-R Int : 136 ms QRS Dur : 080 ms QT Int : 414 ms P-R-T Axes : 065 070 050 degrees QTc Int : 430 ms Normal sinus rhythm. Normal ECG No previous ECGs available Unconfirmed Result
--- NOTE | 2018-11-16 15:12 | PROVIDER DOCUMENTATION ---
This chart was entered by Shyann Dawn Scribe, acting as scribe for Jerilyn Meyer MD. HPI-Neurological Disorder - General Stated Complaint: HEADACHE, SEIZURE, AMS Time Seen by Provider: 11/16/18 13:29 Source: EMS Allergies/Adverse Reactions: Patient Allergies Allergy/AdvReac Type Severity Reaction Status Date / Time No Known Allergies Allergy Verified 03/26/12 09:19 Home Medications: Home Medication List Medication Instructions Recorded Confirmed Last Taken Type NK [No Home Medications] 11/16/18 11/16/18 Unknown History - History of Present Illness-Neuro Nature of Presenting Problem: Patient is a 23 year old female who presents to the ED via EMS with seizure like activity. EMS states patient reported having a headache since yesterday. EMS reports being informed the patient had a seizure this afternoon. EMS states patient had another seizure en route that lasted 30 seconds. Denies history of seizure. Report patient is 1 week post . Onset/Duration: reports: this afternoon Timing: reports: intermittent Context: reports: seizure activity Character of Altered Mental Status: reports: seizure activity Associated Symptoms: reports: headache Similar Symptoms Previously?: No Recently seen or treated by another doctor?: No - Seizure First time to have a seizure?: Yes Witnessed seizure?: Yes How many seizure episodes?: 2 Episode details: reports: unknown duration Episode Frequency: no prior episodes Seizure related injury: bit tongue Review of Systems - Adult - REVIEW OF SYSTEMS - ADULT ROS:: limited per condition Constitutional: reports: no symptoms reported Eyes: reports: no symptoms reported Ears, Nose, Mouth & Throat: reports: no symptoms reported Cardiovascular: reports: no symptoms reported Respiratory: reports: no symptoms reported Gastrointestinal: reports: no symptoms reported Genitourinary: reports: no symptoms reported Musculoskeletal: reports: no symptoms reported Integumentary: reports: no symptoms reported Neurological: reports: see HPI, headache/migraines (DILLON). denies: di zziness/vertigo, tremors Psychiatric: reports: no symptoms reported Endocrine: reports: no symptoms reported Hematologic/Lymphatic: reports: no symptoms reported Allergic/Immunologic: reports: no symptoms reported All Other Systems: Reviewed and Negative Past History - Adult - PAST MEDICAL HISTORY-ADULT Review of Records: reports: Old Records Reviewed, Nursing Assessment Review, Medications Reviewed, Social history reviewed & non-contributory. Major Childhood Illnesses: reports: denies history Cardiovascular: reports: denies history Respiratory: reports: denies history Gastrointestinal: reports: denies history Obstetrical/Gynecological: reports: denies history Genitourinary: reports: denies history Musculoskeletal: reports: denies history Neurological: reports: denies history Endocrine/Immune: reports: denies history Other Conditions: reports: denies history - IMMUNIZATION STATUS Childhood Immunizations: See Nurse Assessment Flu Vaccine: See Nurse Assessment - FAMILY HISTORY Family History: reviewed, not pertinent - SOCIAL HISTORY Smoking: cigarettes, less than 1 pack/day Provider spent 3-5 mins advising pt. on dangers of tobacco.: Discussed manners to quit use, and f/u contacts for add'l counseling. Substance Use: denies Physical Exam- Neurological - Physical Exam-Neuro Initial Vital Signs Reviewed: Yes General Appearance: alert, no apparent distress. negative: obtunded HENMT: moist mucous membranes, other (bite crockett to tongue). negative: angioedema Head Injury: no evidence of injury. negative: active bleeding, lacerations Respiratory: chest non-tender, lungs clear, normal breath sounds. negative: crackles Cardiovascular: normal peripheral pulses, regular rate, rhythm. negative: tachycardia Abdominal Exam: normal bowel sounds, non tender, soft. negative: guarding Extremity: non-tender, normal inspection. negative: deformity, erythema Neurologic: grossly normal. negative: aphasia, facial droop Integumentary: normal color, normal turgor, warm/dry. negative: diaphoresis, jaundice, laceration(s), rash Psych/Mental Status: normal mood/affect, oriented x 3. negative: anxious Progress - PLAN OF CARE/RESULTS Progress/Plan/Lab Results: Vital Signs - 8 hr 11/16/18 13:20 11/16/18 14:30 11/16/18 16:15 Pulse Rate 118 H 71 57 L Respiratory Rate 20 12 18 Blood Pressure 128/97 148/98 163/96 O2 Sat by Pulse Oximetry 98 99 96 Laboratory Results - last 24 hr 11/16/18 11/16/18 11/16/18 13:00 13:00 13:40 WBC 7.39 RBC 4.29 Hgb 11.3 L Hct 36.9 L MCV 86.0 MCH 26.3 L MCHC 30.6 L RDW Std Deviation 15.3 H Plt Count 260 MPV 10.0 Immature Gran % (Auto) 0.4 Neut % (Auto) 73.6 Lymph % (Auto) 16.9 L [place] % (Auto) 7.8 Eos % (Auto) 1.2 Baso % (Auto) 0.1 Immature Gran # (Auto) 0.03 Neut # (Auto) 5.43 Lymph # (Auto) 1.25 [place] # (Auto) 0.58 Eos # (Auto) 0.09 Baso # (Auto) 0.01 Sodium Potassium Chloride Carbon Dioxide Anion Gap BUN Creatinine Estimated GFR/1.73 m2 BUN/Creatinine Ratio Glucose Calculated Osmolality Calcium Magnesium Total Bilirubin AST ALT Alkaline Phosphatase Creatine Kinase Troponin T Total Protein Albumin Globulin Albumin/Globulin Ratio Urine Source CLEAN CATCH Urine Color YELLOW Urine Clarity CLEAR Urine pH 7.0 Ur Specific [place] 1.000 Urine Protein 1+(30 mg/dL) A Urine Ketones NEGATIVE Urine Blood 4+ Urine Nitrite NEGATIVE Urine Bilirubin NEGATIVE Urine Urobilinogen NORMAL Urine Microscopic RBC <10 Urine WBC TRACE A Urine Microscopic WBC 10-20 A Ur Epithelial Cells >10 A Urine Crystals NONE SEEN Urine Bacteria 1+ Urine Casts NONE SEEN Urine Yeast NONE SEEN Urine Glucose NEGATIVE Urine Opiates Screen PRESUMPTIVE POSITIVE A Ur Oxycodone Screen NONE DETECTED Urine Methadone Screen NONE DETECTED U Propoxyphene Qual NONE DETECTED Ur Barbituates Screen NONE DETECTED Ur Tricyclics Screen NONE DETECTED Ur Phencyclidine Scrn NONE DETECTED Ur Amphetamines Screen NONE DETECTED U Methamphetamines Scrn NONE DETECTED U Benzodiazepines Scrn NONE DETECTED Urine Cocaine Screen NONE DETECTED U Cannabinoids Screen NONE DETECTED 11/16/18 11/16/18 13:40 13:40 WBC RBC Hgb Hct MCV MCH MCHC RDW Std Deviation Plt Count MPV Immature Gran % (Auto) Neut % (Auto) Lymph % (Auto) [place] % (Auto) Eos % (Auto) Baso % (Auto) Immature Gran # (Auto) Neut # (Auto) Lymph # (Auto) [place] # (Auto) Eos # (Auto) Baso # (Auto) Sodium 144 Potassium 3.9 Chloride 105 Carbon Dioxide 26 Anion Gap 13 BUN 7 L Creatinine 0.6 Estimated GFR/1.73 m2 > 60 BUN/Creatinine Ratio 12 Glucose 109 H Calculated Osmolality 285 Calcium 8.7 L Magnesium 2.0 Total Bilirubin 0.20 AST 23 ALT 12 Alkaline Phosphatase 185 H Creatine Kinase 173 Troponin T < 0.010 Total Protein 6.2 L Albumin 3.5 Globulin 3.0 Albumin/Globulin Ratio 1.0 Urine Source Urine Color Urine Clarity Urine pH Ur Specific [place] Urine Protein Urine Ketones Urine Blood Urine Nitrite Urine Bilirubin Urine Urobilinogen Urine Microscopic RBC Urine WBC Urine Microscopic WBC Ur Epithelial Cells Urine Crystals Urine Bacteria Urine Casts Urine Yeast Urine Glucose Urine Opiates Screen Ur Oxycodone Screen Urine Methadone Screen U Propoxyphene Qual Ur Barbituates Screen Ur Tricyclics Screen Ur Phencyclidine Scrn Ur Amphetamines Screen U Methamphetamines Scrn U Benzodiazepines Scrn Urine Cocaine Screen U Cannabinoids Screen Orders Category Date Time Status CHEST-1 VIEW [RAD] Stat Exams 11/16/18 13:[address] HEAD W/O CONTRAST [CT] Stat Exams 11/16/18 13:34 Completed CBC WITH ELECTRONIC DIFF [HEME] Stat Lab 11/16/18 13:40 Completed CK PROFILE [SP CHEM] Stat Lab 11/16/18 13:40 Completed COMPREHENSIVE METABOLIC PANEL [CHEM] Stat Lab 11/16/18 13:40 Completed MAGNESIUM [CHEM] Stat Lab 11/16/18 13:40 Completed MYOGLOBIN SERUM [HH] Stat Lab 11/16/18 13:40 Received TROPONIN T Stat Lab 11/16/18 13:40 Completed UA NIMS W/REFLEX CULT PL [URINALYSIS] Stat Lab 11/16/18 13:00 Completed URINE CULTURE [RM] Routine Lab 11/16/18 16:19 Ordered URINE DRUG SCREEN PL Stat Lab 11/16/18 13:00 Completed Ketorolac [Toradol] Med 11/16/18 15:14 Discontinued 30 mg IV NOW ONE EKG [EKG] Stat Ther 11/16/18 13:36 Draft Result Diagrams: 11/16/18 13:40 11/16/18 13:40 - EKG 1 Time of EKG reading by physician:: 14:30 EKG Read and Signed by:: Jerilyn Meyer EKG Interpretation (*Must complete 3 of following elements*): Normal Rate: 65 Rhythm: normal sinus rhythm Mccoll: normal QRS: normal TN Interval: normal ST Wave: normal Comments: normal ECG - XRAY 1 XRAY Study: Chest Impression: See EMR Report ( EXAM: CHEST-1 VIEW HISTORY: CP TECHNIQUE: Chest single view COMPARISON: None. FINDINGS: The lungs are well expanded. The heart is not enlarged. The vessels are not distended. There are no infiltrates. No effusion identified. IMPRESSION: Negative exam. Electronically signed by Keith Negrete 11/16/2018 2:33 PM 11/16/18 1433 Interpreting Physician: Keith Negrete MD Dictated Date/Time: 11/16/18 1433 cc: Jerilyn Meyer MD; None,PCP) - CT/MRI 1 CT Study: Head Impression: See EMR Report (EXAM: CT HEAD W/O CONTRAST 11/16/2018 HISTORY: SEIZURE, HEADACHE, POST TECHNIQUE: This exam was performed using automated exposure control, adjustment of mA or kV according to patient size, and/or use of iterative reconstruction technique. COMMENT: There is no eviden ce of mass effect, bleed, or abnormal extra-axial fluid collection. There is no evidence of suprasellar mass. The visualized paranasal sinuses are clear. The calvarium is intact. IMPRESSION: No evidence of acute intracranial disease. Electronically signed by Kain Rodarte 11/16/2018 2:12 PM 11/16/18 1412 Interpreting Physician: Kain Rodarte MD Dictated Date/Time: 11/16/18 1411 cc: Jerilyn Meyer MD; None,PCP) - CONSULTS/PCP/HOSPITALIST Notification #1 *Consult/PCP/Hospitalist*: Dr. Bonner Time Discussed: 16:29 Reason/Comments: Dr. Meyer consulted with Dr. Bonner about patient Consult Disposition: Admit Departure - Departure Date of Disposition Decision: 11/16/18 Time of Disposition Decision: 16:32 DIAGNOSIS: Seizure, Blood pressure elevated without history of HTN, eclampsia Disposition: ADMITTED INPATIENT 09 Certified Medical Emergency: Emergent Condition: Stable Referrals and Follow-Ups: None,PCP [Primary Care Provider] - - Critical Care Note This patient required my direct & personal management of CC.: No Attestation - Physician/ BARBI Attestation Patient care was provided by Advanced Practice Provider:: No The physician spent face to face time with patient:: Yes Advanced Practice Provider documentation review:: Supervising physician onsite and consulted in the evaluation and care of this patient. The physician did have a face to face encounter with the patient. This chart was documented by the indicated scribe, (Shyann Dawn Scribe) and accurately reflects the services I performed and decisions made by , Jerilyn Meyer MD, as attested by the provider's signature.
[2018-11-16] MEDS ORDERED: TORADOL IV ONE (15:14)
[2018-11-16 15:28] LABS: UR AMPHETAMINES QUAL NONE DETECTED (NONE DETECT); UR BARBITUATES QUAL NONE DETECTED (NONE DETECT); UR BENZODIAZEPIN QUAL NONE DETECTED (NONE DETECT); UR CANNABINOIDS QUAL NONE DETECTED (NONE DETECT); UR COCAINE QUAL NONE DETECTED (NONE DETECT); UR METHADONE QUAL NONE DETECTED (NONE DETECT); UR METHAMPHETAMINE QUAL NONE DETECTED (NONE DETECT); UR OPIATES QUAL PRESUMPTIVE POSITIVE (NONE DETECT); UR OXYCODONE QUAL NONE DETECTED (NONE DETECT); UR PCP QUAL NONE DETECTED (NONE DETECT); UR PROPOXYPHENE QUAL NONE DETECTED (NONE DETECT); UR TCA QUAL NONE DETECTED (NONE DETECT)
[2018-11-16 15:56] LABS: BILIRUBIN URINE NEGATIVE (NEGATIVE); BLOOD URINE 4+ (NEGATIVE); CLARITY CLEAR (CLEAR); COLOR YELLOW; GLUCOSE URINE NEGATIVE (NEGATIVE); KETONE URINE NEGATIVE (NEGATIVE); LEUKOCYTES URINE TRACE (NEGATIVE); NITRITE URINE NEGATIVE (NEGATIVE); PROTEIN URINE 1+(30 mg/dL) mg/dL (NEGATIVE); UROBILINOGEN URINE NORMAL
[2018-11-16 16:18] LABS: URINE RBC <10 /HPF (<10)
[2018-11-16 16:19] LABS: URINE BACTERIA 1+ /HFP; URINE CAST NONE SEEN /LPF; URINE CRYSTAL NONE SEEN /HPF; URINE EPITHELIAL CELLS >10 /HPF (<10); URINE SOURCE CLEAN CATCH; URINE YEAST NONE SEEN /HPF
[2018-11-16] MEDS ORDERED: MAGNESIUM SULFATE 4 GM/S.W.I. 4 GM/100 ML IVPB IV ONE (17:17)
[2018-11-16] MEDS ORDERED: MAGNESIUM SULFATE 40 GM/S.W.I. 40 GM/1,000 ML IV.SOLN IV SCH (18:15)
[2018-11-16] MEDS ORDERED: LR 1,000 ML ONE (18:19)
--- NOTE | 2018-11-16 18:26 | HISTORY AND PHYSICAL ---
HISTORY OF PRESENT ILLNESS: The patient is a 23-year-old white female, G3, now P3 after spontaneous vaginal delivery, who presents on day #5 with history of seizures that began about noon time today. The patient reports that she does not remember anything about the seizure, but this was witnessed by her . The patient has not had any issues with previous pregnancies involving preeclampsia or eclampsia. Patient also does not have a prior history of seizure disorder. The patient does complain of a headache. PAST MEDICAL HISTORY: Unremarkable. PAST SURGICAL HISTORY: None. PAST OB HISTORY: G3, P3. Spontaneous vaginal delivery x3 and most recently by Dr. Rhodes in [place] and she is 5 days . FAMILY HISTORY: Significant for high blood pressure and diabetes mellitus. SOCIAL HISTORY: Tobacco use, none. Alcohol use, none. MEDICATIONS: Iron, Motrin, and Colace. ALLERGIES: No known drug allergies. REVIEW OF SYSTEMS: All systems reviewed and noncontributory. PHYSICAL EXAMINATION: VITAL SIGNS: Height 5 feet 3 inches, weight 150 pounds. Blood pressure 128/97, pulse of 118, respirations 18. HEENT: Pupils equal, round, reactive to light accommodation. Extraocular movements intact. Oropharynx clear. NECK: Supple. No thyromegaly. LUNGS: Clear to auscultation. HEART: Regular rate and rhythm. ABDOMEN: Bowel sounds positive. Soft. Fundus was firm with some soreness. EXTREMITIES: No clubbing, cyanosis, or edema noted. Patient with 1+ DTRs bilaterally. ASSESSMENT AND PLAN: day #5 after spontaneous vaginal delivery with eclampsia. Patient will be admitted to labor and delivery for magnesium sulfate administration, also management of her blood pressure. We will also continue to monitor her labs. cc: Ahmet Bonner III, MD
[2018-11-16] MEDS ORDERED: LR 1,000 ML IV SCH (18:30)
[2018-11-16] MEDS: MAGNESIUM SULFATE 4 GM/S.W.I. 4 GM/100 ML IVPB IV ONE (18:43)
[2018-11-16] MEDS ORDERED: TRANDATE PO SCH (21:00)
[2018-11-16] MEDS: TRANDATE PO SCH (21:46)
[2018-11-16] MEDS: PERCOCET-5 PO PRN (22:12)
[2018-11-17 06:09] LABS: BASO# 0.01 X1000 (0.0-0.2); BASO% 0.1 % (0.0-0.8); EOS# 0.15 X1000 (0.0-0.7); HEMATOCRIT 38.2 % (37.0-47.0); HEMOGLOBIN 11.8 g/dL (12.0-16.0); IMM GRAN# 0.04 X1000 (0.0-0.04); IMM GRAN% 0.5 % (0.0-0.5); LYMPH# 1.62 X1000 (1.2-3.4); LYMPH% 21.6 % (20.5-51.1); MCH 26.6 PG (27-31); MCHC 30.9 g/dL (33-37); MONO# 0.64 X1000 (0.11-0.59); MONO% 8.5 % (1.7-9.3); MPV 9.9 FL (7.4-10.4); NEUT# 5.03 X1000 (1.4-6.5); NEUT% 67.3 % (42.2-75.2); PLT 246 X1000 (130-400); RBC 4.44 XMIL (4.2-5.4); RDW 15.3 % (11.5-14.5); WBC 7.49 X1000 (4.8-10.8)
[2018-11-17] MEDS: PERCOCET-5 PO PRN (06:13)
[2018-11-17 06:49] LABS: AGAP 11; ALBUMIN 3.2 g/dL (3.5-5.0); ALKALINE PHOSPHATASE 169 U/L (32-104); BUN 5 mg/dL (8-22); CHLORIDE 103 mmol/L (98-107); COSMO 278; CREATININE 0.6 mg/dL (0.5-0.9); ESTIMATED GFR > 60; GLUCOSE 91 mg/dL (70-104); GOT 16 U/L (10-30); GPT 10 U/L (10-36); SODIUM 141 mmol/L (136-145); TCO2 27 mmol/L (25-35); TOTAL BILIRUBIN < 0.15 mg/dL (0.20-1.00); TOTAL PROTEIN 6.1 g/dL (6.3-8.3)
[2018-11-17 06:57] LABS: CALCIUM 6.6 mg/dL (8.8-10.2)
--- NOTE | 2018-11-17 09:41 | OB/GYN PROGRESS NOTE ---
Progress Note OB - . Patient Problems: Current Active Problems Problem Status Onset Seizure Acute Blood pressure elevated without history of HTN Acute eclampsia Acute OB Progress Note: Vital Signs - 24 hr 11/16/18 13:20 11/16/18 14:30 11/16/18 16:15 Temperature Pulse Rate 118 H 71 57 L Respiratory Rate 20 12 18 Blood Pressure 128/97 148/98 163/96 O2 Sat by Pulse Oximetry 98 99 96 11/16/18 17:45 11/16/18 18:17 11/16/18 18:43 Temperature 97.8 F Pulse Rate 65 63 67 Respiratory Rate 14 18 18 Blood Pressure 137/75 153/85 158/89 O2 Sat by Pulse Oximetry 98 98 11/16/18 18:48 11/16/18 18:53 11/16/18 18:58 Temperature Pulse Rate 73 76 82 Respiratory Rate 18 18 20 Blood Pressure 145/84 140/86 133/80 O2 Sat by Pulse Oximetry 97 11/16/18 19:30 11/16/18 20:00 11/17/18 00:00 Temperature 98.0 F Pulse Rate 71 68 62 Respiratory Rate 16 16 16 Blood Pressure 141/93 131/80 115/63 O2 Sat by Pulse Oximetry 99 97 96 11/17/18 04:00 11/17/18 08:20 Temperature 96.2 F L 97 F L Pulse Rate 61 69 Respiratory Rate 16 16 Blood Pressure 110/62 118/66 O2 Sat by Pulse Oximetry 98 98 Laboratory Results - last 24 hr 11/16/18 11/16/18 11/16/18 13:00 13:00 13:40 WBC 7.39 RBC 4.29 Hgb 11.3 L Hct 36.9 L MCV 86.0 MCH 26.3 L MCHC 30.6 L RDW Std Deviation 15.3 H Plt Count 260 MPV 10.0 Immature Gran % (Auto) 0.4 Neut % (Auto) 73.6 Lymph % (Auto) 16.9 L [place] % (Auto) 7.8 Eos % (Auto) 1.2 Baso % (Auto) 0.1 Immature Gran # (Auto) 0.03 Neut # (Auto) 5.43 Lymph # (Auto) 1.25 [place] # (Auto) 0.58 Eos # (Auto) 0.09 Baso # (Auto) 0.01 Sodium Potassium Chloride Carbon Dioxide Anion Gap BUN Creatinine Estimated GFR/1.73 m2 BUN/Creatinine Ratio Glucose Calculated Osmolality Calcium Magnesium Total Bilirubin AST ALT Alkaline Phosphatase Creatine Kinase Myoglobin Troponin T Total Protein Albumin Globulin Albumin/Globulin Ratio Urine Source CLEAN CATCH Urine Color YELLOW Urine Clarity CLEAR Urine pH 7.0 Ur Specific [place] 1.000 Urine Protein 1+(30 mg/dL) A Urine Ketones NEGATIVE Urine Blood 4+ Urine Nitrite NEGATIVE Urine Bilirubin NEGATIVE Urine Urobilinogen NORMAL Urine Microscopic RBC <10 Urine WBC TRACE A Urine Microscopic WBC 10-20 A Ur Epithelial Cells >10 A Urine Crystals NONE SEEN Urine Bacteria 1+ Urine Casts NONE SEEN Urine Yeast NONE SEEN Urine Glucose NEGATIVE Urine Opiates Screen PRESUMPTIVE POSITIVE A Ur Oxycodone Screen NONE DETECTED Urine Methadone Screen NONE DETECTED U Propoxyphene Qual NONE DETECTED Ur Barbituates Screen NONE DETECTED Ur Tricyclics Screen NONE DETECTED Ur Phencyclidine Scrn NONE DETECTED Ur Amphetamines Screen NONE DETECTED U Methamphetamines Scrn NONE DETECTED U Benzodiazepines Scrn NONE DETECTED Urine Cocaine Screen NONE DETECTED U Cannabinoids Screen NONE DETECTED 11/16/18 11/16/18 11/16/18 13:40 13:40 13:40 WBC RBC Hgb Hct MCV MCH MCHC RDW Std Deviation Plt Count MPV Immature Gran % (Auto) Neut % (Auto) Lymph % (Auto) [place] % (Auto) Eos % (Auto) Baso % (Auto) Immature Gran # (Auto) Neut # (Auto) Lymph # (Auto) [place] # (Auto) Eos # (Auto) Baso # (Auto) Sodium 144 Potassium 3.9 Chloride 105 Carbon Dioxide 26 Anion Gap 13 BUN 7 L Creatinine 0.6 Estimated GFR/1.73 m2 > 60 BUN/Creatinine Ratio 12 Glucose 109 H Calculated Osmolality 285 Calcium 8.7 L Magnesium 2.0 Total Bilirubin 0.20 AST 23 ALT 12 Alkaline Phosphatase 185 H Creatine Kinase 173 Myoglobin SEE COMMENTS Troponin T < 0.010 Total Protein 6.2 L Albumin 3.5 Globulin 3.0 Albumin/Globulin Ratio 1.0 Urine Source Urine Color Urine Clarity Urine pH Ur Specific [place] Urine Protein Urine Ketones Urine Blood Urine Nitrite Urine Bilirubin Urine Urobilinogen Urine Microscopic RBC Urine WBC Urine Microscopic WBC Ur Epithelial Cells Urine Crystals Urine Bacteria Urine Casts Urine Yeast Urine Glucose Urine Opiates Screen Ur Oxycodone Screen Urine Methadone Screen U Propoxyphene Qual Ur Barbituates Screen Ur Tricyclics Screen Ur Phencyclidine Scrn Ur Amphetamines Screen U Methamphetamines Scrn U Benzodiazepines Scrn Urine Cocaine Screen U Cannabinoids Screen 11/17/18 11/17/18 11/17/18 05:47 05:47 05:47 WBC 7.49 RBC 4.44 Hgb 11.8 L Hct 38.2 MCV 86.0 MCH 26.6 L MCHC 30.9 L RDW Std Deviation 15.3 H Plt Count 246 MPV 9.9 Immature Gran % (Auto) 0.5 Neut % (Auto) 67.3 Lymph % (Auto) 21.6 [place] % (Auto) 8.5 Eos % (Auto) 2.0 Baso % (Auto) 0.1 Immature Gran # (Auto) 0.04 Neut # (Auto) 5.03 Lymph # (Auto) 1.62 [place] # (Auto) 0.64 H Eos # (Auto) 0.15 Baso # (Auto) 0.01 Sodium 141 Potassium 3.0 L D Chloride 103 Carbon Dioxide 27 Anion Gap 11 BUN 5 L Creatinine 0.6 Estimated GFR/1.73 m2 > 60 BUN/Creatinine Ratio 8 Glucose 91 Calculated Osmolality 278 Calcium 6.6 L* D Magnesium 6.2 H Total Bilirubin < 0.15 L AST 16 ALT 10 Alkaline Phosphatase 169 H Creatine Kinase Myoglobin Troponin T Total Protein 6.1 L Albumin 3.2 L Globulin 3.0 Albumin/Globulin Ratio 1.0 Urine Source Urine Color Urine Clarity Urine pH Ur Specific [place] Urine Protein Urine Ketones Urine Blood Urine Nitrite Urine Bilirubin Urine Urobilinogen Urine Microscopic RBC Urine WBC Urine Microscopic WBC Ur Epithelial Cells Urine Crystals Urine Bacteria Urine Casts Urine Yeast Urine Glucose Urine Opiates Screen Ur Oxycodone Screen Urine Methadone Screen U Propoxyphene Qual Ur Barbituates Screen Ur Tricyclics Screen Ur Phencyclidine Scrn Ur Amphetamines Screen U Methamphetamines Scrn U Benzodiazepines Scrn Urine Cocaine Screen U Cannabinoids Screen PI: Pt seen and examined. Currently w/o complaints. Denies DILLON, scotomata, epigastric pain, SOB/CP. Reports feeling tired on mag sulfate. VS: please see above GEN: NAD CV: RRR, +S1S2 RESP: CTA b/l ABD: soft NTTP EXT: neg CT, +2 DTR LABS:please see above ASSESSMENT: PPD#6 s/p presents with eclampsia PLAN: -con't Mag sulfate 2g/hr x 24 hrs. d/c at 1815 today -BP stable, con't Labetalol 200,g PO BID -con't clears diet -Pre-eclampsia labs wnl -con't to monitor closely -possible d/c home tomorrow
[2018-11-17] MEDS: TRANDATE PO SCH ×2 (09:56→20:23)
[2018-11-17] MEDS ORDERED: ZOFRAN IV PRN (20:23)
[2018-11-18 04:05] VITALS: BP 142/79
[2018-11-18] MEDS: PERCOCET-5 PO PRN (04:08)
--- NOTE | 2018-11-18 07:53 | OB/GYN PROGRESS NOTE ---
Progress Note OB - . Patient Problems: Current Active Problems Problem Status Onset Seizure Acute Blood pressure elevated without history of HTN Acute eclampsia Acute OB Progress Note: Vital Signs - 24 hr 11/17/18 08:20 11/17/18 09:15 11/17/18 10:15 Temperature 97 F L Pulse Rate 69 63 67 Respiratory Rate 16 16 16 Blood Pressure 118/66 112/64 119/81 O2 Sat by Pulse Oximetry 98 99 99 11/17/18 11:15 11/17/18 12:15 11/17/18 13:15 Temperature Pulse Rate 63 58 L 65 Respiratory Rate 16 18 18 Blood Pressure 117/76 121/75 124/74 O2 Sat by Pulse Oximetry 97 98 99 11/17/18 14:15 11/17/18 15:15 11/17/18 16:15 Temperature Pulse Rate 59 L 54 L 64 Respiratory Rate 16 16 18 Blood Pressure 144/78 123/81 125/78 O2 Sat by Pulse Oximetry 98 98 99 11/17/18 17:15 11/17/18 18:15 11/17/18 20:14 Temperature 97.5 F L Pulse Rate 68 63 Respiratory Rate 16 16 18 Blood Pressure 125/76 128/81 132/97 O2 Sat by Pulse Oximetry 97 99 98 11/17/18 23:57 11/18/18 04:03 Temperature 97.1 F L 97.5 F L Pulse Rate 59 L 54 L Respiratory Rate 16 16 Blood Pressure 114/63 142/79 O2 Sat by Pulse Oximetry 97 95 The pt is doing well no HAs/CP/SOB/vision changes/RUQ pain. She denies any denies any bleeding. BP stable on Labetalol. Vitals as above Gen: AAOx3 NAD CV: RRR no g/m/r Lungs: CTAB no w/r/r Abd: +BS soft NT/ND Ext: no c/c/e A: PP eclampsia s/p P: D/C home BP check in 1 week
[2018-11-18] MEDS: TRANDATE PO SCH (09:04)
== END 2018-11-18 09:06 | disposition home or self-care (01) | DRG 776 ==
LOC: P.LD 13:24 → P.ED 13:24 → OBSVTOIN 17:51
PROVIDERS: ADMIT Obstetrics & Gynecology; ATTEND Obstetrics & Gynecology

== ENCOUNTER 2018-11-18 19:58 | Observation (INO) ==
[2018-11-18] MEDS ORDERED: LABETALOL IV ONE (20:24)
[2018-11-18 20:36] LABS: BASO# 0.02 X1000 (0.0-0.2); BASO% 0.2 % (0.0-0.8); EOS# 0.16 X1000 (0.0-0.7); EOS% 1.7 % (0.0-10.0); HEMATOCRIT 35.5 % (37.0-47.0); IMM GRAN# 0.03 X1000 (0.0-0.04); IMM GRAN% 0.3 % (0.0-0.5); LYMPH# 2.07 X1000 (1.2-3.4); LYMPH% 22.5 % (20.5-51.1); MCH 26.9 PG (27-31); MCV 86.8 FL (81-99); MONO# 0.94 X1000 (0.11-0.59); MONO% 10.2 % (1.7-9.3); MPV 9.6 FL (7.4-10.4); NEUT% 65.1 % (42.2-75.2); PLT 283 X1000 (130-400); RBC 4.09 XMIL (4.2-5.4); RDW 15.1 % (11.5-14.5); WBC 9.22 X1000 (4.8-10.8)
[2018-11-18] MEDS ORDERED: LABETALOL ONE (20:41)
[2018-11-18 20:53] LABS: INR 0.9; PROTIME 12.6 Seconds (11.0-16.0)
--- NOTE | 2018-11-18 20:57 | Diag Imaging Result Doc PS360 ---
EXAM: CT HEAD W/O CONTRAST HISTORY: headache TECHNIQUE: CT head without contrast COMPARISON: 11/16/2018 FINDINGS: No parenchymal hemorrhage. No epidural or subdural hematoma. No subarachnoid hemorrhage. No mass identified on this noncontrasted exam. No hydrocephalus. No sinus opacification. IMPRESSION: No hemorrhage. No change. This exam was performed using automated exposure control, adjustment of mA or kV according to patient size, and/or use of iterative reconstruction technique. Electronically signed by Keith Negrete 11/18/2018 8:55 PM
[2018-11-18 21:02] LABS: AGAP 11; ALBUMIN 3.6 g/dL (3.5-5.0); ALKALINE PHOSPHATASE 157 U/L (32-104); BUN 12 mg/dL (8-22); CALCIUM 8.3 mg/dL (8.8-10.2); CHLORIDE 104 mmol/L (98-107); COSMO 281; CREATININE 0.7 mg/dL (0.5-0.9); ESTIMATED GFR > 60; GLUCOSE 93 mg/dL (70-104); GOT 15 U/L (10-30); GPT 11 U/L (10-36); POTASSIUM 3.5 mmol/L (3.5-5.1); SODIUM 141 mmol/L (136-145); TCO2 26 mmol/L (25-35); TOTAL BILIRUBIN < 0.15 mg/dL (0.20-1.00); TOTAL PROTEIN 6.3 g/dL (6.3-8.3)
--- NOTE | 2018-11-18 21:02 | Diag Imaging Result Doc PS360 ---
EXAM: CHEST-2 VIEWS HISTORY: post high bp TECHNIQUE: Chest two views COMPARISON: 11/16/2018 FINDINGS: The lungs are well expanded. The heart is not enlarged. The vessels are not distended. There are no infiltrates. No pleural effusions. IMPRESSION: No acute abnormality. Electronically signed by Keith Negrete 11/18/2018 9:00 PM
[2018-11-18] MEDS ORDERED: TORADOL IV ONE (21:09)
[2018-11-18 21:25] LABS: BILIRUBIN URINE NEGATIVE (NEGATIVE); BLOOD URINE 4+ (NEGATIVE); CLARITY CLEAR (CLEAR); COLOR YELLOW; GLUCOSE URINE NEGATIVE (NEGATIVE); KETONE URINE NEGATIVE (NEGATIVE); LEUKOCYTES URINE 2+ (NEGATIVE); NITRITE URINE NEGATIVE (NEGATIVE); PROTEIN URINE NEGATIVE (NEGATIVE); SP GRAVITY URINE 1.005; UROBILINOGEN URINE NORMAL
[2018-11-18 21:30] LABS: UR AMPHETAMINES QUAL NONE DETECTED (NONE DETECT); UR BARBITUATES QUAL NONE DETECTED (NONE DETECT); UR BENZODIAZEPIN QUAL NONE DETECTED (NONE DETECT); UR CANNABINOIDS QUAL NONE DETECTED (NONE DETECT); UR COCAINE QUAL NONE DETECTED (NONE DETECT); UR METHADONE QUAL NONE DETECTED (NONE DETECT); UR METHAMPHETAMINE QUAL NONE DETECTED (NONE DETECT); UR OPIATES QUAL NONE DETECTED (NONE DETECT); UR OXYCODONE QUAL NONE DETECTED (NONE DETECT); UR PCP QUAL NONE DETECTED (NONE DETECT); UR PROPOXYPHENE QUAL NONE DETECTED (NONE DETECT); UR TCA QUAL NONE DETECTED (NONE DETECT)
[2018-11-18 21:33] LABS: URINE BACTERIA NEGATIVE /HFP; URINE EPITHELIAL CELLS <10 /HPF (<10); URINE RBC <10 /HPF (<10); URINE WBC <10 /HPF (<10)
[2018-11-18 21:34] LABS: URINE SOURCE CLEAN CATCH
--- NOTE | 2018-11-18 22:31 | PROVIDER DOCUMENTATION ---
This chart was entered by Katt Valdovinos Scribe, acting as scribe for Jerilyn Meyer MD. HPI-Headache - General Chief Complaint: B/P Problems Stated Complaint: RETURN/RETREAT Time Seen by Provider: 11/18/18 20:23 Source: patient Allergies/Adverse Reactions: Patient Allergies Allergy/AdvReac Type Severity Reaction Status Date / Time No Known Allergies Allergy Verified 03/26/12 09:19 Home Medications: Home Medication List Medication Instructions Recorded Confirmed Last Taken Type Docusate Sodium [Colace] 100 mg PO BID PRN 11/16/18 11/16/18 Unknown History Ferrous Sulfate [Iron] 325 mg PO DAILY 11/16/18 11/16/18 Unknown History Ibuprofen 800 mg PO PRN PRN 11/16/18 11/16/18 Unknown History Labetalol [Trandate] 200 mg PO BID #60 tab 11/18/18 11/18/18 Unknown Rx Oxycodone/APAP 5 mg/325 mg 1 ea PO Q6H PRN PRN #10 tab 11/18/18 Unknown Rx [Percocet-5] - History of Present Illness-Headache Nature of Presenting Problem: 23 yowf c/io global h/a and intermittent dizziness starting today. pt was d/c from hospital today w/ diagnosis of eclampsia. pt has baby 1 wk ago. pt was unable to get rx filled, [facility] until tomorrow. pt is tearful and yelling in TR, in mild distress. Headache Location: reports: global Severity: reports: mild Timing: reports: still present Headache Context: reports: nothing Any recent trauma/injury?: reports: none Headache severity at the maximum: moderate Preceding Symptoms: reports: none Associated Symptoms: reports: dizziness, other (high blood pressure) Review of Systems - Adult - REVIEW OF SYSTEMS - ADULT Constitutional: reports: no symptoms reported. denies: chills, fever, fatique Eyes: reports: no symptoms reported. denies: decreased vision, blurred vision, double vision Ears, Nose, Mouth & Throat: reports: no symptoms reported Cardiovascular: reports: no symptoms reported Respiratory: reports: no symptoms reported Gastrointestinal: reports: no symptoms reported Genitourinary: reports: no symptoms reported Musculoskeletal: reports: no symptoms reported Integumentary: reports: no symptoms reported Neurological: reports: see HPI, dizziness/vertigo, headache/migraines. denies: slurred speech, syncope, tremors Psychiatric: reports: no symptoms reported Endocrine: reports: no symptoms reported Hematologic/Lymphatic: reports: no symptoms reported Allergic/Immunologic: reports: no symptoms reported All Other Systems: Reviewed and Negative Past History - Adult - PAST MEDICAL HISTORY-ADULT Review of Records: reports: Old Records Reviewed, Nursing Assessment Review, Medications Reviewed, Social history reviewed & non-contributory. Major Childhood Illnesses: reports: denies history Cardiovascular: reports: other (eclampsia) Respiratory: reports: denies history Gastrointestinal: reports: denies history Obstetrical/Gynecological: reports: denies history Genitourinary: reports: denies history Musculoskeletal: reports: denies history Neurological: reports: denies history Endocrine/Immune: reports: denies history Other Conditions: reports: denies history Additional History: recent and delivery - IMMUNIZATION STATUS Childhood Immunizations: See Nurse Assessment Flu Vaccine: See Nurse Assessment - FAMILY HISTORY Family History: reviewed, not pertinent - SOCIAL HISTORY Smoking: cigarettes, less than 1 pack/day Provider spent 3-5 mins advising pt. on dangers of tobacco.: Discussed manners to quit use, and f/u contacts for add'l counseling. Substance Use: none/never Physical Exam- Neurological - Physical Exam-Neuro Initial Vital Signs Reviewed: Yes General Appearance: alert, mild distress, anxious. negative: lethargic, slow to respond, obtunded Eye Exam: bilateral eye: normal inspection, PERRL, EOMI HENMT: normocephalic/atraumatic, moist mucous membranes, normal ENT inspection Head Injury: no evidence of injury. negative: active bleeding, ecchymosis, flap, lacerations Neck: non-tender, full range of motion, supple, normal inspection Respiratory: chest non-tender, lungs clear, normal breath sounds Cardiovascular: normal peripheral pulses, regular rate, rhythm Abdominal Exam: normal bowel sounds, non tender, soft Lymphatic: no adenopathy Peripheral Pulses: radial (R): 2+, radial (L): 2+ Extremity: normal range of motion, non-tender, normal gait, normal inspection sports agent Exam: normal hearing, normal speech, PERRL. negative: abnormal speech, facial asymmetry, facial droop Motor/Sensory: no motor deficit, no sensory deficit. negative: sensory deficit, weak motor strength RUE, weak motor strength LUE Neurologic: sports agent II-XII nml as tested, grossly normal, no motor/sensory deficits. negative: aphasia, EOM palsy, facial droop, focal weakness, motor weakness Integumentary: normal color, normal turgor, warm/dry Psych/Mental Status: oriented x 3, anxious, paranoid, tearful, other (yelling during exam). negative: normal mood/affect, normal thought content, normal thought process, disoriented x 3 - Glascow Coma Scale Best Eye Response: (4) open spontaneously Best Verbal Response: (5) oriented Best Motor Response: (6) obeys commands Total Glascow Score: 15 Progress - PLAN OF CARE/RESULTS Progress/Plan/Lab Results: Vital Signs - 8 hr 11/18/18 20:01 11/18/18 20:50 Temperature 98.1 F Pulse Rate 60 Respiratory Rate 18 Blood Pressure 192/94 171/104 O2 Sat by Pulse Oximetry 99 Laboratory Results - last 24 hr 11/18/18 11/18/18 11/18/18 20:20 20:20 20:20 WBC 9.22 RBC 4.09 L Hgb 11.0 L Hct 35.5 L MCV 86.8 MCH 26.9 L MCHC 31.0 L RDW Std Deviation 15.1 H Plt Count 283 MPV 9.6 Immature Gran % (Auto) 0.3 Neut % (Auto) 65.1 Lymph % (Auto) 22.5 Shannon % (Auto) 10.2 H Eos % (Auto) 1.7 Baso % (Auto) 0.2 Immature Gran # (Auto) 0.03 Neut # (Auto) 6.00 Lymph # (Auto) 2.07 Shannon # (Auto) 0.94 H Eos # (Auto) 0.16 Baso # (Auto) 0.02 PT INR PTT (Actin FS) 28.9 Sodium 141 Potassium 3.5 D Chloride 104 Carbon Dioxide 26 Anion Gap 11 BUN 12 D Creatinine 0.7 Estimated GFR/1.73 m2 > 60 BUN/Creatinine Ratio 17 Glucose 93 Calculated Osmolality 281 Calcium 8.3 L D Total Bilirubin < 0.15 L AST 15 ALT 11 Alkaline Phosphatase 157 H Total Protein 6.3 Albumin 3.6 Globulin 3.0 Albumin/Globulin Ratio 1.0 Urine Source Urine Color Urine Clarity Urine pH Ur Specific [place] [address] [place] Urine Protein Urine Ketones Urine Blood Urine Nitrite Urine Bilirubin Urine Urobilinogen Urine Microscopic RBC Urine WBC Urine Microscopic WBC Ur Epithelial Cells Urine Bacteria Urine Glucose Urine Opiates Screen Ur Oxycodone Screen Urine Methadone Screen U Propoxyphene Qual Ur Barbituates Screen Ur Tricyclics Screen Ur Phencyclidine Scrn Ur Amphetamines Screen U Methamphetamines Scrn U Benzodiazepines Scrn Urine Cocaine Screen U Cannabinoids Screen 11/18/18 11/18/18 11/18/18 20:20 20:54 20:54 WBC RBC Hgb Hct MCV MCH MCHC RDW Std Deviation Plt Count MPV Immature Gran % (Auto) Neut % (Auto) Lymph % (Auto) Shannon % (Auto) Eos % (Auto) Baso % (Auto) Immature Gran # (Auto) Neut # (Auto) Lymph # (Auto) Shannon # (Auto) Eos # (Auto) Baso # (Auto) PT 12.6 INR 0.90 PTT (Actin FS) Sodium Potassium Chloride Carbon Dioxide Anion Gap BUN Creatinine Estimated GFR/1.73 m2 BUN/Creatinine Ratio Glucose Calculated Osmolality Calcium Total Bilirubin AST ALT Alkaline Phosphatase Total Protein Albumin Globulin Albumin/Globulin Ratio Urine Source CLEAN CATCH Urine Color YELLOW Urine Clarity CLEAR Urine pH 7.[address] [place] 1.005 Urine Protein NEGATIVE Urine Ketones NEGATIVE Urine Blood 4+ Urine Nitrite NEGATIVE Urine Bilirubin NEGATIVE Urine Urobilinogen NORMAL Urine Microscopic RBC <10 Urine WBC 2+ A Urine Microscopic WBC <10 Ur Epithelial Cells <10 Urine Bacteria NEGATIVE Urine Glucose NEGATIVE Urine Opiates Screen NONE DETECTED Ur Oxycodone Screen NONE DETECTED Urine Methadone Screen NONE DETECTED U Propoxyphene Qual NONE DETECTED Ur Barbituates Screen NONE DETECTED Ur Tricyclics Screen NONE DETECTED Ur Phencyclidine Scrn NONE DETECTED Ur Amphetamines Screen NONE DETECTED U Methamphetamines Scrn NONE DETECTED U Benzodiazepines Scrn NONE DETECTED Urine Cocaine Screen NONE DETECTED U Cannabinoids Screen NONE DETECTED Orders Category Date Time Status CHEST-2 VIEWS [RAD] Stat Exams 11/18/18 20:[address] HEAD W/O CONTRAST [CT] Stat Exams 11/18/18 20:20 Completed CBC WITH ELECTRONIC DIFF [HEME] Stat Lab 11/18/18 20:20 Completed COMPREHENSIVE METABOLIC PANEL [CHEM] Stat Lab 11/18/18 20:20 Completed PT [PROTIME WITH INR] [COAG] Stat Lab 11/18/18 20:20 Completed PTT [COAG] Stat Lab 11/18/18 20:[address] W/POSS RFLX CULT [URINALYSIS] Stat Lab 11/18/18 20:54 Completed URINE CULTURE [RM] Routine Lab 11/18/18 21:34 Ordered URINE DRUG SCREEN PL Stat Lab 11/18/18 20:54 Completed 0.9% Sodium Chloride Inj [Ns] 1,000 ml Med 11/18/18 22:50 Discontinued IV 999 mls/hr Hydralazine [Apresoline] Med 11/19/18 00:27 Discontinued 5 mg IV NOW ONE Ketorolac [Toradol] Med 11/18/18 21:09 Discontinued 30 mg IV NOW ONE Labetalol Med 11/18/18 20:41 Discontinued 100 mg .ROUTE .STK-MED ONE Labetalol Med 11/18/18 20:24 Discontinued 5 mg IV NOW ONE Magnesium Sulfate 2 gm/S.w.i. Med 11/19/18 00:43 Active 2 gm in 50 ml IV NOW Morphine Med 11/18/18 22:47 Discontinued 2 mg IV NOW ONE Ondansetron [Zofran] Med 11/18/18 22:47 Discontinued 4 mg IV NOW ONE Result Diagrams: 11/18/18 20:20 11/18/18 20:20 - REASSESSMENT Reassessment #1 Time Reassessed: 00:05 Status: unchanged Reassessment #2 Time Reassessed: 00:46 Status: unchanged (pt says she was on mag sulphate and it helped, will start on mag sulphate. admitted) - EKG 1 Time of EKG reading by physician:: 20:55 EKG Read and Signed by:: Jerilyn Meyer EKG Interpretation (*Must complete 3 of following elements*): Abnormal ( borderline) Rate: 53 Rhythm: Sinus bradycardia w/marked sinus arrhythmia Hart: right QRS: normal AR Interval: normal ST Wave: normal - XRAY 1 XRAY: Bilateral XRAY Study: Chest Impression: Normal, See EMR Report (EXAM: CHEST-2 VIEWS HISTORY: post high bp TECHNIQUE: Chest two views COMPARISON: 11/16/2018 FINDINGS: The lungs are well expanded. The heart is not enlarged. The vessels are not distended. There are no infiltrates. No pleural effusions. IMPRESSION: No acute abnormality. Electronically signed by Keith Negrete 11/18/2018 9:00 PM) - CT/MRI 1 CT Study: Head Impression: Normal, See EMR Report (EXAM: CT HEAD W/O CONTRAST HISTORY: h eadache TECHNIQUE: CT head without contrast COMPARISON: 11/16/2018 FINDINGS: No parenchymal hemorrhage. No epidural or subdural hematoma. No subarachnoid hemorrhage. No mass identified on this noncontrasted exam. No hydrocephalus. No sinus opacification. IMPRESSION: No hemorrhage. No change. This exam was performed using automated exposure control, adjustment of mA or kV according to patient size, and/or use of iterative reconstruction technique. Electronically signed by Keith Negrete 11/18/2018 8:55 PM) - CONSULTS/PCP/HOSPITALIST Notification #1 *Consult/PCP/Hospitalist*: DR GALLO Time Discussed: 00:15 Consult Disposition: Admit (advised hydralazine.) Departure - Departure Date of Disposition Decision: 11/19/18 Time of Disposition Decision: 00:28 DIAGNOSIS: Headache Disposition: ADMITTED INPATIENT 09 Certified Medical Emergency: Emergent Condition: Stable Referrals and Follow-Ups: None,PCP [Primary Care Provider] - Discharge Education: Migraine Headache, [id number] - Critical Care Note This patient required my direct & personal management of CC.: No Attestation - Physician/ BARBI Attestation Patient care was provided by Advanced Practice Provider:: No The physician spent face to face time with patient:: Yes Advanced Practice Provider documentation review:: Supervising physician onsite and consulted in the evaluation and care of this patient. The physician did have a face to face encounter with the patient. This chart was documented by the indicated scribe, (Katt Valdovinos Scribe) and accurately reflects the services I performed and decisions made by me, Jerilyn Meyer MD, as attested by the provider's signature.
[2018-11-18] MEDS ORDERED: ZOFRAN IV ONE (22:47)
[2018-11-18] MEDS ORDERED: MORPHINE IV ONE (22:47)
[2018-11-18] MEDS ORDERED: NS 1,000 ML IV ONE (22:50)
[2018-11-19] MEDS ORDERED: APRESOLINE IV ONE (00:27)
[2018-11-19] MEDS ORDERED: MAGNESIUM SULFATE 2 GM/S.W.I. 2 GM/50 ML IVPB IV ONE (00:43)
[2018-11-19] MEDS ORDERED: DILAUDID IV PRN ×2 (00:47→02:46)
[2018-11-19 06:11] LABS: BASO# 0.01 X1000 (0.0-0.2); BASO% 0.1 % (0.0-0.8); EOS# 0.04 X1000 (0.0-0.7); EOS% 0.4 % (0.0-10.0); HEMATOCRIT 39.8 % (37.0-47.0); IMM GRAN# 0.06 X1000 (0.0-0.04); IMM GRAN% 0.6 % (0.0-0.5); LYMPH# 1.39 X1000 (1.2-3.4); LYMPH% 13.4 % (20.5-51.1); MCH 26.5 PG (27-31); MCHC 30.2 g/dL (33-37); MCV 87.9 FL (81-99); MONO% 7.7 % (1.7-9.3); MPV 9.9 FL (7.4-10.4); NEUT# 8.06 X1000 (1.4-6.5); NEUT% 77.8 % (42.2-75.2); PLT 313 X1000 (130-400); RBC 4.53 XMIL (4.2-5.4); RDW 15.3 % (11.5-14.5); WBC 10.36 X1000 (4.8-10.8)
[2018-11-19 06:24] LABS: AGAP 15; ALBUMIN 3.6 g/dL (3.5-5.0); ALKALINE PHOSPHATASE 169 U/L (32-104); BUN 7 mg/dL (8-22); CALCIUM 8.3 mg/dL (8.8-10.2); CHLORIDE 104 mmol/L (98-107); COSMO 281; CREATININE 0.6 mg/dL (0.5-0.9); ESTIMATED GFR > 60; GLUCOSE 99 mg/dL (70-104); GOT 18 U/L (10-30); GPT 10 U/L (10-36); POTASSIUM 3.5 mmol/L (3.5-5.1); SODIUM 142 mmol/L (136-145); TCO2 24 mmol/L (25-35); TOTAL PROTEIN 6.8 g/dL (6.3-8.3)
[2018-11-19] MEDS ORDERED: FIORICET PO ONE (08:16)
--- NOTE | 2018-11-19 08:48 | EKG Report ---
Test Performed on : 11/18/2018 8:55:25 PM Test Reason : ER Blood Pressure : / mmHG Vent. Rate : 053 BPM Atrial Rate : 053 BPM P-R Int : 152 ms QRS Dur : 074 ms QT Int : 470 ms P-R-T Axes : 065 100 080 degrees QTc Int : 441 ms Sinus bradycardia. with marked sinus arrhythmia. Rightward axis Borderline ECG When compared with ECG of 16-NOV-2018 14:30, (Unconfirmed) No significant change was found Unconfirmed Result
[2018-11-19] MEDS ORDERED: TRANDATE PO SCH (09:00)
[2018-11-19] MEDS: TRANDATE PO SCH ×2 (09:10→21:54)
[2018-11-19] MEDS: PROCARDIA PO SCH ×3 (09:12→21:54)
[2018-11-19] MEDS ORDERED: TYLENOL PO PRN (11:05)
[2018-11-19] MEDS ORDERED: COLACE PO PRN (12:01)
[2018-11-19] MEDS: TORADOL IV PRN (13:11)
[2018-11-19] MEDS: FIORICET PO PRN ×3 (13:12→21:54)
--- NOTE | 2018-11-19 13:16 | HISTORY AND PHYSICAL ---
PRIMARY CARE PROVIDER: No one. CHIEF COMPLAINT: Headache and high blood pressure. HISTORY OF PRESENT ILLNESS: Ms Madhavi Adams is a 23-year-old female who most recently had her 3rd child about 1 week ago who apparently developed seizures. She had three seizures prior to presenting to the emergency department on the here at [facility]. She was treated for eclampsia. Blood pressure was monitored with medications started. Apparently, she was on magnesium sulfate drip as well. She was seen by Dr. Bonner at that time. She was discharged yesterday and re-presented last night because her blood pressure started shooting back up again, and she started having a bad headache with it. The headache would shoot up the right side of her neck, to the top of her head and on both sides with some associated nausea and dizziness. No seizures since she presented back on the though she was apparently unable to get her antihypertensive filled as the pharmacy was out of it until today. So was admitted tonight and last night overnight to manage her blood pressure. She was 192/94, and then it was 171/104. The medication she received magnesium sulfate, labetalol, Toradol, and hydralazine which did improve the blood pressure about 148/85 so we will add her on some scheduled nifedipine and schedule labetalol p.o. We will watch her one more night, and then hopefully she can have her medication filled at the pharmacy without any complications. Her delivery was at [facility], and she had a little boy. PAST MEDICAL HISTORY: Newly diagnosed hypertension and had some seizures this past admission. Gestational diabetes. Iron deficiency anemia. PAST SURGICAL HISTORY: None. SOCIAL HISTORY: She is a half pack per day smoker for about 4 years, but she quit 9 months ago when she found out she was with her 3rd child. Rarely drinks alcohol maybe once a year. She is and has 3 kids, 1 girl and 2 boys now. She does not work. Denies any illicit drug use. FAMILY HISTORY: Positive for hypertension and diabetes. ALLERGIES: No known drug allergies. HOME MEDICATIONS: 1. Colace 100 mg p.o. twice a day. 2. Ibuprofen 800 mg as needed. 3. Iron 325 mg p.o. daily. 4. Percocet 5 1 tablet p.o. every 6 hours p.r.n. 5. Labetalol 200 mg p.o. twice daily. REVIEW OF SYSTEMS: Fourteen point review of systems are complete and all were negative except those mentioned above in HPI. She denied any visual changes either. No shortness of breath. PHYSICAL EXAMINATION: VITAL SIGNS: Temperature 98.8 degrees, heart rate 56, respiratory rate 18, blood pressure 168/87, and O2 saturation 100% on room air. GENERAL: Ms. Madhavi Adams is a 23-year-old female. She is in no acute distress. She is able answer questions appropriately. HEENT: Atraumatic, normocephalic. Pupils equal, round, and reactive to light. Extraocular movements intact. Mucous membranes moist. NECK: Trachea midline. CARDIOVASCULAR: S1, S2. Regular rate and rhythm. No rubs, gallops, or murmurs. No lower extremity edema. +2 dorsalis and radial pulses. Negative JVD or carotid bruits. PULMONARY: Clear to auscultation. Bilateral breath sounds. No accessory muscle use or work of breathing noted. GI: Abdomen is soft, nontender, and nondistended. Positive bowel sounds x4. EXTREMITIES: Moves all extremities equally. Full range of motion. NEUROLOGIC: Alert and oriented x3. Follows commands. Sensory is intact. SKIN: Warm, dry and intact. LABORATORY DATA: White blood cells 10,000, hemoglobin 12, hematocrit 39, and platelet count 313,000. Sodium 142, potassium 3.5, BUN 7, and creatinine 0.6, glucose 99, calcium 8.3, and magnesium is 2.3. Bilirubin 0.20. AST 18. ALT 10. Albumin 3.6. Urinalysis 2+. White blood cells otherwise negative. Urine drug screen negative. IMAGING: Chest x-ray with no acute findings. Head CT no hemorrhage. No change. EKG sinus bradycardia with rate of 53. QTc is 441. ASSESSMENT/PLAN: 1. eclampsia with hypertension and headache. She had hydralazine and IV labetalol in the ER, and was started on oral labetalol which we will continue. We will also add nifedipine and she got a dose of IV magnesium sulfate as well when she was in the ER. Blood pressures have improved. Headache slightly improved. We added Fioricet for that. We will get an echocardiogram to evaluate any heart dysfunction or cardiac dysfunction from being recently. 2. Hypertension. See #1. 3. Recent seizures that was secondary to eclampsia. 4. Currently, with a migraine. She has got Fioricet and she also has p.r.n. Dilaudid. 5. Deep venous thrombosis prophylaxis. SCD's. Dictated by SHAHZAD Rodriguez for Femi Jenkins MD Addendum: Patient seen and examined by myself. Agree with SHAHZAD note. It reflects my assessment and plan. Patient is being admitted to hospital for uncontrolled hypertension. Will adjust BP medications and if BP is better will discharge her. cc: SHAHZAD Rodriguez MD [facility]
[2018-11-20] MEDS: FIORICET PO PRN ×3 (02:43→14:10)
[2018-11-20] MEDS: PROCARDIA PO SCH ×2 (05:57→14:09)
[2018-11-20] MEDS: TORADOL IV PRN (05:57)
[2018-11-20] MEDS: TRANDATE PO SCH ×2 (07:58→11:42)
[2018-11-20] MEDS: FERROUS SULFATE PO SCH ×2 (07:58→11:42)
--- NOTE | 2018-11-20 08:43 | ECHO REPORT ---
ORDER DATE: 11/19/2018 ECHOCARDIOGRAPHIC MEASUREMENTS: 1. Interventricular septum 0.7. 2. Left ventricular posterior wall 0.8. 3. Diastolic diameter 5.4. 4. Aorta 2.6 cm. SUMMARY OF 2-DIMENSIONAL IMAGIN. Aortic valve leaflets are trileaflet. 2. Tricuspid valve was normal. 3. Pulmonic valve was normal. There is mild pulmonary regurgitation. 4. Mitral and tricuspid valves were normal. There is mild tricuspid regurgitation. Peak velocity across the tricuspid valve was 3 m/sec. 5. Pulmonary artery systolic pressure 46 mmHg. 6. There is mild mitral regurgitation. 7. Peak velocity across the aortic valve less than 2 m/sec by Doppler studies. There is no aortic stenosis or regurgitation. 8. Normal left ventricular cavity size. Estimated ejection fraction of 60%. 9. There is no pericardial effusion or obvious intracardiac mass or thrombus seen. cc: MD Leta King CRNP
--- NOTE | 2018-11-20 14:11 | DISCHARGE SUMMARY ---
ADMISSION DATE: 11/19/2018 DISCHARGE DATE: 11/20/2018 DISCHARGE DIAGNOSES: 1. eclampsia. 2. Hypertension. HOSPITAL COURSE: Ms. Adams is a 23-year-old female who had her 3rd child born about a week ago. She had some seizures prior to presenting to the emergency department here at [facility]. She was treated for eclampsia and her blood pressure was monitored with medication started. She was seen by Dr. Bonner at that time. She came back with a significant headache and therefore was then admitted to the hospital. Her blood pressure was significantly uncontrolled, but that has now improved. Her blood pressure has improved and she feels much better. Her headache has completely resolved and has not been having any sort of seizures. Since her condition has improved, we are going to be discharging her home today. I advised her to continue with her labetalol as outpatient 200 mg twice daily. DISCHARGE MEDICATIONS: 1. Labetalol 200 mg orally twice daily. 2. Percocet 5 mg orally every 6 hours as needed for pain. 3. Ibuprofen 800 mg orally as needed for pain. 4. Ferrous sulfate 325 mg orally once daily. 5. Docusate sodium 100 mg orally twice daily. FOLLOWUP: She will follow up with her PCP in approximately 1 week. CONDITION: Stable. DISPOSITION: Home. cc: Halima Dai MD
[2018-11-20 15:11] VITALS: BP 145/83
== END 2018-11-20 15:17 | disposition home or self-care (01) ==
LOC: P.ED 19:58 → P.MEDSURG 19:58 → SUATTDRO 11-19 01:44
PROVIDERS: ATTEND Internal Medicine